=== PATIENT | male | born 1960 | race Caucasian/White ===

== ENCOUNTER → 2024-08-08 | Outpatient (CLI) | payer MEDICARE, MEDICAID, SELFPAY ==
--- NOTE | 2024-08-08 09:24 | XR_ITS ---
Examination: Abdomen AP single view Technique: AP portable supine abdomen, single view Exam date and time: August 08, 2024 0927 hours INDICATIONS: Difficulty urinating beginning one month ago urinary tract infections one month FINDINGS: No calculi, distended urinary bladder is not depicted Osseous structures are intact Nonobstructive bowel gas pattern IMPRESSION: No renal or ureteral calculi
== END | disposition home or self-care (01) ==
LOC: CDIM 09:17
PROVIDERS: PCP Family Medicine; Referring Provider Surgery; Visit Provider Surgery
DX: N39.0 Urinary tract infection, site not specified (principal)
CPT/HCPCS: 74018

== ENCOUNTER 2024-09-20 08:03 | Emergency (ER) | payer MEDICARE, MEDICAID, SELFPAY ==
[2024-09-20 08:07] VITALS: BP 133/67; PULSE 86; RESP 19; TEMP 35.9; O2SAT 94
--- NOTE | 2024-09-20 08:14 | XR_ITS ---
Examination: CT brain head without contrast. 2-D sagittal coronal reconstructions Date and time of exam:September 20, 2024 0900 hours Comparison February 17, 2024 INDICATIONS: New onset seizures today CTDI: vol (mGy):47.5 DLP: (mGycm):879 Technique: Multiple CT axial sections of the brain have been obtained, 5 mm slice thickness. Contrast has not been administered. 2-D sagittal, coronal reconstructions have been obtained Low dose protocols were performed. One or more of the following dose reduction techniques were used; automated exposure control, adjustment of the mA and/or KV according to patient size, use of iterative reconstruction technique. Findings: Mild ventricular enlargement. Intra-axial or extra-axial hemorrhage density is not seen. No mass effect or midline shift Basal cisterns are not remarkable. Fourth ventricle is midline. Cranial vault intact. Impression: Negative for acute hemorrhage, mass effect or midline shift Consider elective brain MRI follow-up, pre and postcontrast, seizure protocol
--- NOTE | 2024-09-20 08:15 | EDRME_ITS ---
Rapid Medical Screening Exam [facility] Arrival date/time: 09/20/24 08:03 64-year-old male with a history of Down syndrome and diabetes presents to the emergency room with a chief complaint of a seizure that lasted 10 to 20 seconds. This was not a tonic-clonic seizure and the patient does not have a history of seizures. This was observed by staff at [facility]. I have greeted and performed a focused initial assessment of this patient. A comprehensive ED assessment and evaluation of the patient, analysis of all test results, and completion of the medical decision making process will be conducted by additional ED providers. Chief Complaint: Seizure Vital signs: Vital Signs Temperature 96.7 F L 09/20/24 08:07 Pulse Rate 86 09/20/24 08:07 Respiratory Rate 19 09/20/24 08:07 Blood Pressure 133/67 H 09/20/24 08:07 Pulse Oximetry (%) 94 L 09/20/24 08:07 Oxygen Delivery Method Room Air 09/20/24 08:07 Vital signs reviewed by provider: Yes
[2024-09-20 08:16] VITALS: PULSE 70; O2SAT 98
[2024-09-20 08:45] VITALS: BMI 31.2
--- NOTE | 2024-09-20 09:03 | XR_ITS ---
Examination: AP chest single view TECHNIQUE: AP portable supine chest single view Exam date and time: September 20, 2024 0943 hours Comparison February 17, 2024 INDICATIONS: Shortness of breath one week. FINDINGS: Normal heart size Subtle bilateral lung opacity consistent with pneumonia Mild vascular congestion Prominent osteopenia IMPRESSION: Findings most consistent with diffuse bilateral pneumonia
--- NOTE | 2024-09-20 09:03 | EKG_ITS ---
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
--- NOTE | 2024-09-20 09:20 | PD.EDSEIZ ---
ED Seizures RME/HPI General Chief Complaint: Seizure Stated Complaint: SEIZURE Arrival date/time: 09/20/24 08:03 RME / HPI RME / HPI Narrative: 09/20/24 08:03 64-year-old male with a history of Down syndrome and diabetes presents to the emergency room with a chief complaint of a seizure that lasted 10 to 20 seconds. This was not a tonic-clonic seizure and the patient does not have a history of seizures. This was observed by staff at [facility]. I have greeted and performed a focused initial assessment of this patient. A comprehensive ED assessment and evaluation of the patient, analysis of all test results, and completion of the medical decision making process will be conducted by additional ED providers. Related Data Allergies Allergy/AdvReac Type Severity Reaction Status Date / Time latex Allergy Redness of Unverified 02/18/24 03:57 Skin Course Orders Category Date Time Status Bedside COVID-19 Antigen Test NOW Care 09/20/24 09:01 Active Bedside Influenza A&B Antigen Test NOW Care 09/20/24 09:01 Active EKG (ED ONLY) *Do not use* NOW Care 09/20/24 09:03 Active Saline [Insert IV] NOW Care 09/20/24 09:01 Active Seizure precautions NOW Care 09/20/24 08:14 Active Straight [In and Out Catheter] X1 Care 09/20/24 09:[address] head/brain wo con Stat Exams 09/20/24 08:14 Taken EKG (ED Only) Stat Exams 09/20/24 09:03 Draft XR chest 1V portable Stat Exams 09/20/24 09:03 Ordered Ammonia Stat Lab 09/20/24 08:15 Ordered CBC Stat Lab 09/20/24 08:15 Ordered CMP [Comprehensive Metabolic Panel] Stat Lab 09/20/24 08:15 Ordered Drug Screen,Urine Stat Lab 09/20/24 08:15 Ordered Magnesium Stat Lab 09/20/24 08:15 Ordered PT [Prothrombin Time with INR] Stat Lab 09/20/24 08:15 Ordered PTT [Partial Thromboplastin Time] Stat Lab 09/20/24 08:15 Ordered Thyroid Stimulating Hormone Stat Lab 09/20/24 08:15 Ordered Troponin I Stat Lab 09/20/24 08:15 Ordered UA, C/S IF [Urinalysis, C/S if Indicated] Stat Lab 09/20/24 08:15 Ordered Ondansetron Inj [Zofran Inj] Med 09/20/24 09:02 Discontinued 4 mg IV X1 ONE Sodium Chloride 0.9% 1000 ml [Ns] 1,000 ml Med 09/20/24 09:02 Active IV 999 mls/hr levETIRAcetam INJ [Keppra Inj] Med 09/20/24 09:02 Discontinued 1,000 mg IVP X1 ONE Vital Signs Vital signs: Vital Signs Temperature 96.7 F L 09/20/24 08:07 Pulse Rate 86 09/20/24 08:07 Respiratory Rate 19 09/20/24 08:07 Blood Pressure 133/67 H 09/20/24 08:07 Pulse Oximetry (%) 94 L 09/20/24 08:07 Oxygen Delivery Method Room Air 09/20/24 08:07 Seizure Evaluation data The following diagnostics were reviewed and interpreted by me:: EKG tracing(s) (My interpretation of the EKG: NSR (66 bpm) with no ST-T changes. Miky Loredo MD) Medications / Prescriptions Medication administrations:: Medication Administration History Sodium Chloride (Ns) 1,000 mls @ 999 mls/hr IV .Q1H1M ONE Stop: 09/20/24 10:02 Discontinued Medications Levetiracetam (Levetiracetam Inj 100 Mg/Ml Vial 5ml) 1,000 mg IVP X1 ONE Stop: 09/20/24 09:03 Ondansetron HCl (Ondansetron Inj 2 Mg/Ml Inj 2 Ml) 4 mg IV X1 ONE; Protocol Stop: 09/20/24 09:03 Discharge Plan Prescriptions/Referrals Referrals: Kimberly Santana PA-C [Primary Care Provider] - In 1 week Patient/Caregiver Discharge Instructions Print Language: Armenian
--- NOTE | 2024-09-20 09:27 | PD.EDSEIZ ---
ED Seizures RME/HPI General Chief Complaint: Seizure Stated Complaint: SEIZURE Arrival date/time: 09/20/24 08:03 RME / HPI RME / HPI Narrative: 09/20/24 08:03 64-year-old male with a history of Down syndrome and diabetes presents to the emergency room with a chief complaint of a seizure that lasted 10 to 20 seconds. This was not a tonic-clonic seizure and the patient does not have a history of seizures. This was observed by staff at [facility]. I have greeted and performed a focused initial assessment of this patient. A comprehensive ED assessment and evaluation of the patient, analysis of all test results, and completion of the medical decision making process will be conducted by additional ED providers. DR. MACIEL MAIN ED EVALUATION: This section includes all my notes and documentations, including HPI, PE, and ED course.? Miky Maciel MD HPI: 64 year old male with past medical history significant for Down Syndrome presents to the Emergency Department [facility] from assisted with complaint of a seizure that lasted 10-20 seconds just prior to arrival. 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 No other complaints reported. ROS: All negative except as documented in HPI. Physical Exam: General:? Alert and oriented X 1.? No acute distress when remaining still.? Eyes:? Conjunctivae and lids clear. PERRL. EOMI. ENT:? No nasal congestion.? ? Neck:? Supple. No carotid bruit. Heart:? RRR. Lungs:? No respiratory distress.? Good air movement.? No rhonchi, wheezing, rales.? Abdomen:? Soft and nontender.? Legs:? No clubbing, cyanosis, edema. Skin:? Warm and dry.? Neuro: Cranial nerves II to XII grossly normal. No peripheral motor deficits. I reviewed all diagnostic test results. My interpretation of the EKG is?NSR (66 bpm) with no ST-T changes. My interpretation of the chest x-ray is infiltrates. My review of the head CT report is?no acute findings. Blood tests unremarkable. At this point, diagnoses include new onset seizure and pneumonia. Treatment here included IV fluids, Levetiracetam 1,000 mg IV, zofran 4 mg. Remained stable. Prescribed Keppra and ABX and recommended more outpatient neurology workup. Based on my best medical judgment, made decision no further evaluation or treatment indicated at this time.? Staff understands and agrees to the discharge instructions customized and printed, see below. Discharge Instructions from Dr. Maciel printed for you: 1. After extensive evaluation, there is no very serious condition that caused the seizure. Such as stroke or brain tumor or heart attack. 2. To prevent another seizure, Keppra as prescribed. Cefdinir and Zithromax as prescribed. 3. See his neurologist on 09/21/2024 for further care. At minimum, call the office and let them know what happened to get further instructions. 4. Seek immediate medical care with another seizure or with any concerns. Miky Maciel MD Related Data Previous Rx's ?Medication ?Instructions ?Recorded azithromycin 500 mg tablet 500 mg PO QDAY 3 days #3 tabs 09/20/24 (Zithromax TRI-KIMBERLY) cefdinir 300 mg capsule 300 mg PO BID #14 caps 09/20/24 levetiracetam 500 mg tablet 500 mg PO BID #60 tabs 09/20/24 (Keppra) Allergies Allergy/AdvReac Type Severity Reaction Status Date / Time latex Allergy Redness of Unverified 02/18/24 03:57 Skin Course Quality Measures none Orders Category Date Time Status Bedside COVID-19 Antigen Test NOW Care 09/20/24 09:01 Completed Bedside Influenza A&B Antigen Test NOW Care 09/20/24 09:01 Completed EKG (ED ONLY) *Do not use* NOW Care 09/20/24 09:03 Completed Saline [Insert IV] NOW Care 09/20/24 09:01 Completed Seizure precautions NOW Care 09/20/24 08:14 Completed Straight [In and Out Catheter] X1 Care 09/20/24 09:[address] head/brain wo con Stat Exams 09/20/24 08:14 Completed EKG (ED Only) Stat Exams 09/20/24 09:03 Draft XR chest 1V portable Stat Exams 09/20/24 09:03 Completed Ammonia Stat Lab 09/20/24 09:52 Completed CBC Stat Lab 09/20/24 09:52 Completed CMP [Comprehensive Metabolic Panel] Stat Lab 09/20/24 09:52 Completed Magnesium Stat Lab 09/20/24 09:52 Completed PT [Prothrombin Time with INR] Stat Lab 09/20/24 09:52 Completed PTT [Partial Thromboplastin Time] Stat Lab 09/20/24 09:52 Completed Thyroid Stimulating Hormone Stat Lab 09/20/24 09:52 Completed Troponin I Stat Lab 09/20/24 09:52 Completed Ondansetron Inj [Zofran Inj] Med 09/20/24 09:02 Discontinued 4 mg IV X1 ONE Sodium Chloride 0.9% 1000 ml [Ns] 1,000 ml Med 09/20/24 09:02 Discontinued IV 999 mls/hr levETIRAcetam INJ [Keppra Inj] Med 09/20/24 09:02 Discontinued 1,000 mg IVP X1 ONE Vital Signs Vital signs: Vital Signs Temperature 96.7 F L 09/20/24 08:07 Pulse Rate 86 09/20/24 08:07 Respiratory Rate 19 09/20/24 08:07 Blood Pressure 133/67 H 09/20/24 08:07 Pulse Oximetry (%) 94 L 09/20/24 08:07 Oxygen Delivery Method Room Air 09/20/24 08:07 Seizure MDM Narrative MDM Narrative:: IColleen am scribing for and in the presence of Dr. Maciel. Patient data External records reviewed:: EMS form Clinical information provided by:: neonatal icu coordinator Social determinants that could affect healthcare access:: housing (assisted) Patient has the following chronic illnesses:: Down Syndrome How is presenting disease/condition affected by chronic disease/condition?: exacerbated by Evaluation data The following diagnostics were reviewed and interpreted by me:: lab results, radiology exam(s) and EKG tracing(s) (My interpretation of the EKG: NSR (66 bpm) with no ST-T changes. Miky Maciel MD) Lab and/or radiology exams considered but not ordered:: none Interpretation Summary: New onset seizure Medications / Prescriptions Medications or Prescriptions considered but not ordered:: none Medication administrations:: Medication Administration History Discontinued Medications Sodium Chloride (Ns) 1,000 mls @ 999 mls/hr IV .Q1H1M ONE Stop: 09/20/24 10:02 Last Admin: 09/20/24 09:51 Dose: 999 mls/hr Documented By: KEANU Levetiracetam (Levetiracetam Inj 100 Mg/Ml Vial 5ml) 1,000 mg IVP X1 ONE Stop: 09/20/24 09:03 Last Admin: 09/20/24 09:50 Dose: 1,000 mg Documented By: KEANU Ondansetron HCl (Ondansetron Inj 2 Mg/Ml Inj 2 Ml) 4 mg IV X1 ONE; Protocol Stop: 09/20/24 09:03 Last Admin: 09/20/24 09:50 Dose: 4 mg Documented By: KEANU IV fluids, Levetiracetam 1,000 mg, zofran 4 mg Consultations Consultation(s) initiated? (list below): No Diagnosis Seizure Differential Diagnosis: generalized seizure, new onset seizure and epileptic seizure Most likely diagnosis given after review of the tests above:: New onset seizure Admission Indicated Admission indicated?: not indicated Admission Request Was there a request for admission?: No Disposition Plan Disposition Plan: Discharge Discharge Attestation Discharge Attestation: The patient and all family members were given an opportunity to ask questions and understood the discharge instructions. Discharge instructions specifically effects, indications for sooner follow up or return to the emergency department, and the expected course of current diagnosis. Patient condition: Stable Discharge Plan Plan Patient Disposition: HOME (Self Care) Prescriptions/Referrals Prescriptions/Med Rec: New levetiracetam [Keppra] 500 mg tablet 500 mg PO BID Qty: 60 0RF cefdinir 300 mg capsule 300 mg PO BID Qty: 14 0RF azithromycin [Zithromax TRI-KIMBERLY] 500 mg tablet 500 mg PO QDAY 3 Days Qty: 3 0RF Referrals: Kimberly Santana PA-C [Primary Care Provider] - In 1 week Problem List Clinical Impression: New onset seizure, Pneumonia Patient/Caregiver Discharge Instructions Discharge Activity: activity as tolerated Education Materials: ED Pneumonia (Adult), ED Seizure New Onset Unknown ... Additional Instructions: Discharge Instructions from Dr. Maciel printed for you: 1. After extensive evaluation, there is no very serious condition that caused the seizure. Such as stroke or brain tumor or heart attack. 2. To prevent another seizure, Keppra as prescribed. Cefdinir and Zithromax as prescribed. 3. See his neurologist on 09/21/2024 for further care. At minimum, call the office and let them know what happened to get further instructions. 4. Seek immediate medical care with another seizure or with any concerns. Print Language: Fijian Stand Alone Forms: [employer] Award Info., Patient Portal Info Letter
[2024-09-20] MEDS: ONDANSETRON INJ 2 MG/ML INJ 2 ML 4 MG IV (09:50)
[2024-09-20] MEDS: levETIRAcetam INJ 100 MG/ML VIAL 5ML 1000 MG IVP (09:50)
[2024-09-20] MEDS: SODIUM CHLORIDE 0.9% 1000 ML 1,000 ML 999 ML IV (09:51)
[2024-09-20 10:01] LABS: Basophils # (Auto) 0.1 Thou/mm3 (0.0-0.2); Basophils % (Auto) 1 % (0-2.5); Eosinophils # (Auto) 0.1 Thou/mm3 (0.0-0.5); Eosinophils % (Auto) 2 % (0-10); Hematocrit 42.1 % (41.0-53.0); Hemoglobin 13.9 g/dL (13.5-16.0); Immature Granulocytes % (Auto) 0 % (0-0); Immature Granulocytes Auto 0.02 Thou/mm3 (0.00-0.00); Lymphocytes # (Auto) 1.3 Thou/mm3 (1.0-4.8); Lymphocytes % (Auto) 17 % (10-50); Mean Corpuscular Hemoglobin 29.3 pg (25.0-35.0); Mean Corpuscular Volume 89 fL (80-100); Monocytes # (Auto) 0.7 Thou/mm3 (0.0-0.8); Monocytes % (Auto) 9 % (0-12); Neutrophils # (Auto) 5.2 Thou/mm3 (1.8-7.7); Neutrophils % (Auto) 71 % (37-80); Nucleated Red Blood Cell % 0 /100 WBC (0); Platelet Count 261 Thou/mm3 (140-440); RDW Standard Deviation 53.3 fL (35.1-43.9); Red Blood Count 4.75 Miln/mm3 (4.50-5.90); White Blood Count 7.4 Thou/mm3 (3.8-10.6)
[2024-09-20 10:18] LABS: Ammonia 18 uMol/L (11-32)
[2024-09-20 10:26] LABS: INR 1.1 (0.9-1.3); Partial Thromboplastin Time 31.6 Seconds (22.0-36.0); Prothrombin Time 11.9 Seconds (9.0-12.2)
[2024-09-20 10:35] LABS: Alanine Aminotransferase 12 U/L (10-49); Albumin, Serum 3.9 gm/dL (3.4-4.8); Albumin/Globulin Ratio 1.2 (1.2-2.2); Alkaline Phosphatase 112 U/L (46-116); Anion Gap 8 (7-16); Aspartate Amino Transferase 27 U/L (0-34); BUN/Creatinine Ratio 21 Ratio (12-20); Bilirubin,Total 0.3 mg/dL (0.3-1.2); Blood Urea Nitrogen 19 mg/dL (9-23); Calcium 9.7 mg/dL (8.3-10.6); Calcium (Corrected) 9.8 mg/dL (8.5-10.1); Carbon Dioxide 26.4 mMol/L (20.0-31.0); Chloride 107 mMol/L (98-107); Creatinine (Component) 0.9 mg/dL (0.6-1.3); Estimated Creatinine Clearance 69.2 mL/min (>60); Globulin 3.3 gm/dL (2.3-3.5); Glucose 100 mg/dL (74-106); Magnesium 2.1 mg/dL (1.6-2.6); Osmolality,Calculated 283 (275-295); Potassium 4.6 mMol/L (3.4-5.1); Sodium 141 mMol/L (136-145); Thyroid Stimulating Hormone 1.91 uIU/mL (0.55-4.78); Total Protein 7.2 gm/dL (5.7-8.2); Troponin I < 0.020 ng/mL (0.0-0.045); eGFR > 60 See Note
[2024-09-20 11:43] VITALS: BP 132/86; PULSE 72; RESP 16; TEMP 36.7; O2SAT 94
== END 2024-09-20 11:45 | disposition home or self-care (01) ==
PROVIDERS: Nurse Practitioner Family; Emergency Provider Emergency Medicine; PCP Physician Assistant
DX: R56.9 Unspecified convulsions (principal); J18.9 Pneumonia, unspecified organism; Q90.9 Down syndrome, unspecified; E11.9 Type 2 diabetes mellitus without complications
CPT/HCPCS: 36415; 70450; 71045; 80053; 80307; 81001; 82140; 83735; 84443; 84484; 85025; 85610; 85730; 93005; 96374; 96375; 99284; J1953; J2405; J7030

== ENCOUNTER 2025-05-20 08:20 | Inpatient (IN) | payer MEDICARE, MEDICAID, SELFPAY ==
[2025-05-20] VITALS (8 sets, daily range): BP systolic 98–157; BP diastolic 66–92; PULSE 72–99; RESP 12–97; TEMP 36.2–36.7; O2SAT 91–98; BMI 29.4; BMI 29.9
--- NOTE | 2025-05-20 08:40 | EKG_ITS ---
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
--- NOTE | 2025-05-20 08:54 | XR_ITS ---
EXAMINATION: AP chest single view TECHNIQUE: AP portable upright chest single view Date and time: May 20, 2025, 1007 hours, comparison September 20, 2024 INDICATIONS: Shortness of breath today FINDINGS: Mild enlargement cardiac contour. Prominent vascular congestion. Early edema versus pneumonia at the lung bases. Prominent osteopenia IMPRESSION: Suspicious for mild heart failure Mild opacity at the lung bases, consider early bibasilar pneumonia
--- NOTE | 2025-05-20 08:56 | EDNOTE_ITS ---
<Statement entered by Alea Hrenandez MD - 05/20/25 16:26> I, Alea Hernandez MD, have reviewed the history, exam, and assessment of the patient. I have evaluated the patient independently and agree with the plan of care documented by [ ]. All diagnostic studies were reviewed and discussed. I confirm the diagnosis as documented by the Resident. I was present during the Medical Decision Making for this patient. The patient's plan of care was created between myself and the Resident and consistent with our discussion of the patient's case. ED GI Bleed RME/HPI General Chief complaint: GI Bleed Stated complaint: rectal bleed Time Seen by Provider: 05/20/25 08:24 Arrival date/time: 05/20/25 08:20 RME / HPI RME / HPI Narrative: Patient is a 64 year old male with past medical history of down syndrome- nonverbal, history of seizures, and hypothyroidism who is presenting to the emergency room with chief complain of hematochezia, single episode that was significant per career development manager, Kary Ellsworth. Patient's caregiver stated single episode occured earlier this morning and initially noted by nursing staff. Patient has bowel movements every other day with last bowel movement being on 05/19/2025 in the morning. No previous history of hematochezia. Denied history of diverticulitis. Denied Melena in stool. No diarrhea. No Fever or chills. Nasal congestion with yellow phlegm. Single episode of emesis, denied hematemsis. Bowel regimen at facility: Docusate. NO colonoscopy. Meloxicam use. Recent Antibiotic use with Azithromycin now day 3 of antibiotics for concern of community acquired pneumonia prescribed by PCP, at [facility] [place]. Previous EGD noted for esophagitis. Home medication remains unchagned with Levothyroxine 150 mcg and Keppra 500 mg PO BID. 1:42: CT Abdomen/Pelvis noted to have colitis Related Data Previous Rx's ?Medication ?Instructions ?Recorded cefdinir 300 mg capsule 300 mg PO BID #14 caps 09/20 levetiracetam 500 mg tablet 500 mg PO BID #60 tabs 12/10 (Keppra) Allergies Allergy/AdvReac Type Severity Reaction Status Date / Time latex Allergy Redness of Verified 05/20/25 08:31 Skin Review of Systems Review of Systems Narrative Review of Systems: NON Verbal history per caregiver General appearance: NO weight change, NO fatigue, NO weakness, NO fever, NO chills, NO night sweats, No cough Skin: NO rash, NO itching, NO sores, NO moles HEENT: NO Trauma, NO nausea, NO vomiting, NO visual changes, NO blurry vision, NO double vision, NO tinnitus, NO vertigo, NO ear discharge, NO rhinorrhea, NO stuffiness, NO sneezing, NO allergy, NO epistaxis. NO Hoarseness, NO sore throat, NO swollen neck. Cardiac: NO Palpitations, NO dyspnea on exertion, NO orthopnea, NO paroxysmal nocturnal dyspnea, NO edema Respiratory: NO Shortness of Breath, NO Wheezing, NO Cough, NO Sputum, NO hemoptysis GI:NO appetite, NO nausea, YES vomiting, NO dysphagia, NO changes in bowel frequency, YES stool color, NO diarrhea, NO constipation, NO hemetemesis, NO hemorrhoids, NO melena, YES hematechezia, NO abdominal pain, NO jaundice Renal: NO frequency, NO hesitancy, NO urgency, NO hematuria, NO nocturia, NO incontinence MSK: NO muscle weakness, NO gout, NO arthritis, NO muscle stiffness Neuro: NO headaches, NO tremors, NO weakness, NO paralysis, NO seizures, NO loss of consciousness, NO numbness. Hem: NO anemia, NO easy bruising/bleeding, NO petechiae, NO purpura Endo: NO heat/cold intolerance, NO excessive sweating, NO polyuria, NO polydipsia, NO polyphagia, NO thyroid problems, NO diabetes Pysch: NO mood, NO anxiety, NO depression ED Exam Narrative Physical exam: General Appearance: Alert & Oriented X3, well-nourished male who is lying in bed in no acute distress, but does hold his lower abdomen and is resistant to moving hands away from area. HEENT: Skull symmetrical and atraumatic. Conjunctivae pin and moist. Pupils equal, round, reactive to light and accommodation (PERRL). External ear without lesion or discharge. Straight, nares patient, mucosa pink, no discharge. No thyroid nodule appreciated. No cervical lymphadenopathy. Cardio: Normal Rate and Rhythm with S1 and S2 heart sounds. No murmurs or extra heart sounds auscultated. No bruits on carotid auscultation. No peripheral edema or cyanosis. Lungs: Symmetric with good expansion. Chest and back non-tender. Breath sounds vesicular without crackles, wheezing or rhonchi Abdomen: Non-tender, Non-distended, Normal Reactive Bowel Sounds, diapers appear with moderate bright red blood Neuro: Alert, cooperative, oriented to person, place, and time. Speech clear. CN grossly intact. Upper motor strength 5/5 and Lower motor strength 5/5. Sensation intact. Course Quality Measures none (NONE Bleeding ) Orders Category Date Time Status Aspiration precautions ONCE Care 05/20/25 10:07 Active Bedside COVID-19 Antigen Test NOW Care 05/20/25 09:42 Active Bladder Scan NEEDED Care 05/20/25 11:34 Active Lehr Loader NOW Care 05/20/25 08:51 Active Continuous Pulse Oximetry Care 05/20/25 08:51 Completed Continuous Pulse Oximetry NOW Care 05/20/25 08:46 Completed EKG (ED ONLY) *Do not use* NOW Care 05/20/25 08:40 Completed Head of Bed Elevation NOW Care 05/20/25 10:07 Active In and Out Catheter X1 Care 05/20/25 09:32 Completed Insert IV STAT Care 05/20/25 08:47 Active Intake and Output Routine Care 05/20/25 08:47 Ordered NPO NOW Care 05/20/25 08:46 Active Occult Blood,Stool (Nursing) NOW Care 05/20/25 08:44 Active Strict Intake and Output Routine Care 05/20/25 10:07 Ordered Vital Signs, Non-Routine [id number] Care 05/20/25 09:[address] abdomen pelvis wo con Routine Exams 05/20/25 10:59 Taken EKG (ED Only) Stat Exams 05/20/25 08:40 Draft XR chest 1V Routine Exams 05/20/25 08:54 Completed Amylase Stat Lab 05/20/25 09:11 Completed Blood Culture (Lab) Stat Lab 05/20/25 10:07 Received C-Reactive Protein Stat Lab 05/20/25 09:11 Completed CBC Routine Lab 05/20/25 09:11 Completed CMP [Comprehensive Metabolic Panel] Routine Lab 05/20/25 09:11 Completed Cocci Serology IgM with reflex to IgG [Cocci Serology, Lab 05/20/25 09:11 Received Unk History] Routine Comprehensive Metabolic Panel Stat Lab 05/20/25 09:11 Completed Creatinine,Random Urine Stat Lab 05/20/25 09:32 Completed Drug Screen,Urine Routine Lab 05/20/25 09:32 Completed Electrolytes, Urine Random Stat Lab 05/20/25 09:32 Completed FLU A&B [Influenza A & B Rapid Panel] Stat Lab 05/20/25 10:10 Completed Lactic Acid [Lactate (Lactic Acid)] Stat Lab 05/20/25 10:07 Completed Lipase Stat Lab 05/20/25 09:11 Completed Magnesium Stat Lab 05/20/25 09:11 Completed Occult Blood, Stool (LAB) Stat Lab 05/20/25 08:46 Completed Partial Thromboplastin Time Stat Lab 05/20/25 09:11 Completed Phosphorous Stat Lab 05/20/25 09:11 Completed Procalcitonin Stat Lab 05/20/25 09:11 Completed Prothrombin Time with INR Stat Lab 05/20/25 09:11 Completed TSH [Thyroid Stimulating Hormone] Routine Lab 05/20/25 09:11 Completed Troponin I Stat Lab 05/20/25 09:11 Completed Type and Screen Routine Lab 05/20/25 09:11 Completed Urinalysis, C/S if Indicated Stat Lab 05/20/25 09:20 Completed Urinalysis, C/S if Indicated Stat Lab 05/20/25 09:32 Completed Urine Culture Routine Lab 05/20/25 09:20 Received Urine Culture Stat Lab 05/20/25 09:32 Received Ampicillin/Sulbac Inj [Unasyn Inj] 1.5 gm Med 05/20/25 09:45 Discontinued SODIUM CHLORIDE 0.9% (Popper) [Ns 0.9% (P)] 50 ml IV X1 Ampicillin/Sulbac Inj [Unasyn Inj] 3 gm Med 05/20/25 10:15 Discontinued SODIUM CHLORIDE 0.9% (Popper) [Ns 0.9% (P)] 50 ml IV Q6HR Ampicillin/Sulbac Inj [Unasyn Inj] 3 gm Med 05/20/25 10:19 Discontinued SODIUM CHLORIDE 0.9% (Popper) [Ns 0.9% (P)] 50 ml IV X1 Ondansetron Inj [Zofran Inj] Med 05/20/25 08:46 Active 4 mg IVP Q1H PRN Pantoprazole Inj [Protonix Inj] Med 05/20/25 08:46 Discontinued 80 mg IVP X1 ONE Pharmacy to Consult Patient Med 05/20/25 10:01 Discontinued 1 each XX PRN PRN Ringers Lactated 1000 ml [Lactated Ringers] 1,000 ml Med 05/20/25 09:14 Discontinued IV 999 mls/hr as above Vital Signs Vital signs: Vital Signs Temperature 97.6 F 05/20/25 08:31 Pulse Rate 77 05/20/25 08:31 Respiratory Rate 17 05/20/25 08:31 Blood Pressure 131/71 H 05/20/25 08:31 Pulse Oximetry (%) 95 05/20/25 08:31 Oxygen Delivery Method Room Air 05/20/25 08:31 GI Bleed Patient data External records reviewed:: [facility] previous records and Retirement records Clinical information provided by:: patient and access director (Kary Ellsworth ) Social determinants that could affect healthcare access:: mental health (down syndrome non verbal ) Patient has the following chronic illnesses:: Down Syndrome, history of Seizure, and Hypothyroidism How is presenting disease/condition affected by chronic disease/condition?: uneffected by Evaluation data The following diagnostics were reviewed and interpreted by me:: EKG tracing(s) Lab and/or radiology exams considered but not ordered:: CBC, CMP, Chest x-ray, type and screen, UA/Culture CT Abdomen/Pelvis Interpretation Summary: Leukocytosis, WBC, 18.5-->Procalcitonin, ESR, Blood Culture Stat Medications / Prescriptions Medications or Prescriptions considered but not ordered:: Pantoprzole 80 mg X 1 Bolus LR X 1 Unaysn X 1 Medication administrations:: Medication Administration History Acetaminophen (Acetaminophen 325 Mg Tablet) 650 mg PO Q6H PRN PRN Reason: Fever >100.3 Stop: 06/19/25 13:25 Acetaminophen (Acetaminophen 325 Mg Tablet) 650 mg PO Q6H PRN PRN Reason: PAIN SCALE 1-3 (mild Stop: 06/19/25 13:25 Allopurinol (Allopurinol 100 Mg Tablet) 300 mg PO QDAY BORIS Stop: 06/20/25 08:59 Docusate Sodium (Docusate Sod 100 Mg Capsule) 100 mg PO QDAY BORIS; Protocol Stop: 06/20/25 08:59 Ceftriaxone Sodium/Dextrose (Rocephin/D5w 1gm Iv Premix) 1 gm in 50 mls @ 100 mls/hr IV QDAY [facility] Stop: 05/27/25 13:31 Azithromycin 500 mg/ Sodium (Chloride) 250 mls @ 250 mls/hr IV QDAY [facility] Stop: 05/27/25 13:31 Levetiracetam (Levetiracetam Inj 100 Mg/Ml Vial 5ml) 500 mg IVP Q12HR [facility] Stop: 06/19/25 20:59 Levothyroxine Sodium (Levothyroxine Sodium 125 Mcg Tablet) 150 mcg PO ACBR [facility] Stop: 06/20/25 05:59 Loratadine (Loratadine 10 Mg Tablet) 10 mg PO QDAY [facility] Stop: 06/20/25 08:59 Meloxicam (Meloxicam 7.5 Mg Tablet) 7.5 mg PO HS [facility] Stop: 06/19/25 20:59 Mirtazapine (Mirtazapine 15 Mg Tablet) 7.5 mg PO HS [facility] Stop: 06/19/25 20:59 Ondansetron HCl (Ondansetron Inj 2 Mg/Ml Inj 2 Ml) 4 mg IVP Q1H PRN PRN Reason: PERSISTENT NAUSEA OR VOMITING Discontinued Medications Lactated Ringer's (Lactated Ringers) 1,000 mls @ 999 mls/hr IV .Q1H1M ONE Stop: 05/20/25 10:14 Last Infusion: 05/20/25 10:34 Dose: Infused Documented By: Admin: 05/20/25 09:21 Dose: 999 mls/hr Documented By: Ampicillin Sodium/Sulbactam (Sodium 3 gm/ Sodium Chloride) 50 mls @ 100 mls/hr IV Q6HR [facility] Stop: 05/27/25 10:14 Last Admin: 05/20/25 10:34 Dose: Not Given Documented By: Non-Admin Reason: Discontinued Ampicillin Sodium/Sulbactam (Sodium 1.5 gm/ Sodium Chloride) 50 mls @ 100 mls/hr IV X1 ONE Stop: 05/20/25 10:14 Last Admin: 05/20/25 10:19 Dose: Not Given Documented By: Non-Admin Reason: Discontinued Ampicillin Sodium/Sulbactam (Sodium 3 gm/ Sodium Chloride) 50 mls @ 100 mls/hr IV X1 ONE Stop: 05/20/25 10:48 Last Infusion: 05/20/25 11:17 Dose: Infused Documented By: Admin: 05/20/25 10:46 Dose: 100 mls/hr Documented By: LESLYE Pantoprazole Sodium (Pantoprazole Inj 40 Mg Vial) 80 mg IVP X1 ONE Stop: 05/20/25 08:47 Last Admin: 05/20/25 09:17 Dose: 80 mg Documented By: Pharmacy Consult (Pharmacy To Consult Patient) 1 each XX PRN PRN PRN Reason: CONSULT Stop: 06/19/25 10:00 see above Consultations Consultation(s) initiated? (list below): Yes Consultation #1 (Physician, Specialty, Details): Dr. Gonzalez 12:00 PM, Resident Diagnosis GI bleed differential diagnosis: hemorrhoids, gastritis, Lower gastrointestinal hemorrhage and hematochezia Most likely diagnosis given after review of the tests above:: Likely diagnosis of hemorrhoids as patient requires docusate, goes every other day and typically strains Admission Indicated Admission indicated?: indicated Admission Request Was there a request for admission?: Yes Admission Attestation Admission request attestation: Discussed case with Dr. Gonzalez, resident, from Hospitalist service regarding admission. Discussed patients ED course, exam findings, labs, and radiology results. The Hospitalist agrees to accept the patient for admission. Disposition Plan Disposition Plan: Admit Discharge Plan Plan Patient Disposition: Admit Acute Care w/in Hospital Problem List Clinical Impression: Aspiration pneumonia, Hematemesis MD Attestation MD Attestation I Petr Gonzalez MD reviewed the note and agree with the resident's assessment & plan with modifications/additions/exceptions as below. I have personally reviewed labs, imaging, home meds/prior records, examined the patient, formulated and discussed management plan with the IM team. A 64-year-old male with history of Down syndrome, seizure disorder, hypothyroidism presented to ED with bright red blood on his diaper that was noticed earlier this morning. He was recently diagnosed with community acquired pneumonia and is being treated with azithromycin. Patient is hemodynamically stable, hemoglobin within normal range however has mild leukocytosis, CT abdomen/pelvis with mild rectal thickening, CRP and procalcitonin significantly increased LFTs are elevated. Also noted to have SOURAV. Started on Protonix 40 mg daily, will start on IVF resuscitation, repeat CBC in 8 hours, consulted GI for colonoscopic evaluation. Will start on Rocephin for treatment of community- acquired pneumonia already received 3 days of azithromycin, continue Keppra and levothyroxine home dose. Obtain hepatitis panel. And continue trending LFTs. Use IPC's for DVT prophylaxis
[2025-05-20 09:05] LABS: OBS Developer Expiration Date 2027-02-28; OBS Developer Lot # 4-24-551749; OBS Performed By MADRG3; OBS QC OK? Yes; Occult Blood, Stool Positive (Negative)
[2025-05-20] MEDS: RINGERS LACTATED 1000 ML 1,000 ML 999 ML IV (09:21)
[2025-05-20 09:26] LABS: Basophils # (Auto) 0.1 Thou/mm3 (0.0-0.2); Basophils % (Auto) 0 % (0-2.5); Eosinophils # (Auto) 0.0 Thou/mm3 (0.0-0.5); Eosinophils % (Auto) 0 % (0-10); Hematocrit 43.6 % (41.0-53.0); Hemoglobin 14.3 g/dL (13.5-16.0); Immature Granulocytes Auto 0.14 Thou/mm3 (0.00-0.00); Lymphocytes # (Auto) 1.0 Thou/mm3 (1.0-4.8); Lymphocytes % (Auto) 5 % (10-50); Mean Corpuscular HGB Conc 32.8 g/dl (31.0-37.0); Mean Corpuscular Hemoglobin 29.8 pg (25.0-35.0); Mean Corpuscular Volume 91 fL (80-100); Monocytes # (Auto) 0.8 Thou/mm3 (0.0-0.8); Monocytes % (Auto) 4 % (0-12); Neutrophils # (Auto) 16.5 Thou/mm3 (1.8-7.7); Neutrophils % (Auto) 89 % (37-80); Nucleated Red Blood Cell # 0.00 Thou/mm3 (0.00-0.00); Nucleated Red Blood Cell % 0 /100 WBC (0); Platelet Count 159 Thou/mm3 (140-440); RDW Standard Deviation 55.8 fL (35.1-43.9); Red Blood Count 4.80 Miln/mm3 (4.50-5.90); White Blood Count 18.5 Thou/mm3 (3.8-10.6)
[2025-05-20 09:26] LABS: Collection Type, Urine Clean Catch; RBC,Urine 0 /hpf (0-3); Squamous Epithelial Cell,Urine 0 /hpf (0-5)
[2025-05-20 09:31] LABS: Bilirubin,Urine Negative (Negative); Blood,Urine Negative (Negative); Clarity,Urine Clear (Clear/Hazy); Color,Urine Lt-Yellow (Lt Yel-Yel); Culture Indicated,Urine Not Indicated; Glucose, Urine Negative (Negative); Ketones,Urine Trace (Negative); Leukocyte Esterase,Urine Negative (Negative); Nitrite,Urine Negative (Negative); PH,Urine 6.0 (5.0-7.0); Protein,Urine Negative (Neg - Trace); Specific Gravity,Urine 1.014 (1.001-1.035); Urobilinogen,Urine Negative mg/dL (0.0-1.0); WBC,Urine < 1 /hpf (0-5)
[2025-05-20 09:42] LABS: INR 1.2 (0.9-1.3); Partial Thromboplastin Time 30.1 Seconds (22.0-36.0); Prothrombin Time 12.9 Seconds (9.0-12.2)
[2025-05-20 09:50] LABS: Alanine Aminotransferase 87 U/L (10-49); Albumin, Serum 3.7 gm/dL (3.4-4.8); Albumin/Globulin Ratio 1.2 (1.2-2.2); Alkaline Phosphatase 118 U/L (46-116); Anion Gap 9 (7-16); Aspartate Amino Transferase 87 U/L (0-34); BUN/Creatinine Ratio 17 Ratio (12-20); Bilirubin,Total 0.4 mg/dL (0.3-1.2); Blood Urea Nitrogen 27 mg/dL (9-23); Calcium 8.8 mg/dL (8.3-10.6); Calcium (Corrected) 9.0 mg/dL (8.5-10.1); Carbon Dioxide 25.0 mMol/L (20.0-31.0); Chloride 107 mMol/L (98-107); Creatinine (Component) 1.6 mg/dL (0.6-1.3); Estimated Creatinine Clearance 37.8 mL/min (>60); Globulin 3.0 gm/dL (2.3-3.5); Glucose 129 mg/dL (74-106); Osmolality,Calculated 288 (275-295); Potassium 4.7 mMol/L (3.4-5.1); Sodium 141 mMol/L (136-145); Thyroid Stimulating Hormone 2.06 uIU/mL (0.55-4.78); Total Protein 6.7 gm/dL (5.7-8.2); eGFR 48 See Note
[2025-05-20 09:56] LABS: Collection Type, Urine Catheter
[2025-05-20 10:15] LABS: Lactate (Lactic Acid) 1.9 mMol/L (0.4-2.0)
[2025-05-20 10:39] LABS: Bilirubin,Urine Negative (Negative); Blood,Urine 3+ (Negative); Clarity,Urine Clear (Clear/Hazy); Color,Urine Yellow (Lt Yel-Yel); Culture Indicated,Urine Not Indicated; Glucose, Urine Negative (Negative); Ketones,Urine Negative (Negative); Leukocyte Esterase,Urine Negative (Negative); Nitrite,Urine Negative (Negative); PH,Urine 5.5 (5.0-7.0); Protein,Urine Trace (Neg - Trace); RBC,Urine 7 /hpf (0-3); Specific Gravity,Urine 1.023 (1.001-1.035); Squamous Epithelial Cell,Urine < 1 /hpf (0-5); Urobilinogen,Urine Negative mg/dL (0.0-1.0); WBC,Urine 2 /hpf (0-5)
[2025-05-20] MEDS: AMPICILLIN/SULBAC INJ 3 GM in SODIUM CHLORIDE 0.9% (Popper) 50 ML IV (10:46)
[2025-05-20 10:47] LABS: Alanine Aminotransferase 73 U/L (10-49); Albumin, Serum 3.2 gm/dL (3.4-4.8); Albumin/Globulin Ratio 1.2 (1.2-2.2); Alkaline Phosphatase 102 U/L (46-116); Amylase 37 U/L (30-118); Anion Gap 8 (7-16); Aspartate Amino Transferase 58 U/L (0-34); BUN/Creatinine Ratio 17 Ratio (12-20); Bilirubin,Total 0.4 mg/dL (0.3-1.2); Blood Urea Nitrogen 27 mg/dL (9-23); C-Reactive Protein 11.5 mg/dL (0.0-0.9); Calcium 8.4 mg/dL (8.3-10.6); Calcium (Corrected) 9.0 mg/dL (8.5-10.1); Carbon Dioxide 25.2 mMol/L (20.0-31.0); Chloride 109 mMol/L (98-107); Creatinine (Component) 1.6 mg/dL (0.6-1.3); Estimated Creatinine Clearance 37.8 mL/min (>60); Globulin 2.6 gm/dL (2.3-3.5); Glucose 119 mg/dL (74-106); Lipase 17 U/L (12-53); Magnesium 2.0 mg/dL (1.6-2.6); Osmolality,Calculated 289 (275-295); Phosphorous 3.0 mg/dL (2.4-5.1); Potassium 4.1 mMol/L (3.4-5.1); Procalcitonin 20.71 ng/ml (0.0-0.49); Sodium 142 mMol/L (136-145); Total Protein 5.8 gm/dL (5.7-8.2); Troponin I < 0.020 ng/mL (0.0-0.045); eGFR 48 See Note
[2025-05-20 10:52] LABS: Amphetamine/Methamp Scrn,U Negative (Negative); Barbiturate Screen,Urine Negative (Negative); Benzodiazepines Screen,Urine Negative (Negative); Benzoylecgonine Screen, Ur Negative (Negative); Chloride,Urine Random 33.0 mMol/L (55.0-125.0); Creatinine,Random Urine 159 mg/dL (30-125); Fentanyl Screen,Urine Negative (Negative); Opiate Screen,Urine Negative (Negative); Potassium,Urine Random 43 mMol/L (12-62); Sodium,Urine Random 47.5 mMol/L (20.0-110.0); THC Screen,Urine Negative (Negative)
--- NOTE | 2025-05-20 10:59 | XR_ITS ---
Examination: CT abdomen and pelvis without contrast. Coronal 3-D reconstructions. Sagittal 2-D reconstructions. Date and time of exam: May 20, 2025, 1118 hours INDICATIONS: Rectal bleeding beginning several days ago CTDI: vol (mGy): 16.2 DLP: (mGycm): 886 Technique: Axial images of the abdomen have been obtained, 3 mm slice thickness Intravenous contrast material has not been administered. Low dose protocols were performed. One or more of the following dose reduction techniques were used; automated exposure control, adjustment of the mA and/or KV according to patient size, use of iterative reconstruction technique. Findings: Small pericardial effusion No focal liver or splenic lesion No gallstones No pancreatic or adrenal mass No renal or ureteral calculi, no hydronephrosis No pericecal inflammatory change Intact urinary bladder Bowel present in a right inguinal hernia defect and bladder present in the left inguinal hernia defect no bowel obstruction or incarcerated bowel I do not visualize a definite colitis pattern on this noncontrast study IMPRESSION: Bowel present in the right inguinal hernia but no incarcerated bowel or bowel obstruction Bladder present in a left inguinal hernia
[2025-05-20 11:02] LABS: Influenza A Ag Negative; Influenza B Ag Negative
--- NOTE | 2025-05-20 12:21 | PC.NURSE ---
DR. NOGUERA MADE AWARE OF PT LAB VALUES REGARDING PT'S PROCALCITONIN & WBC LEVELS. PER DR. NOGUERA, NO SEPSIS ALERT AT THIS TIME.
--- NOTE | 2025-05-20 13:12 | PRELIM_ITS ---
CT scan of the abdomen and pelvis without intravenous contrast (axial sections with sagittal and coronal reformats) May 20, 2025 1118 hours Clinical History: Lower GI bleed Comparison: No prior study is available for comparison. Findings: There is heterogeneous attenuation of the lungs, which may represent small airways disease versus interstitial pulmonary edema. There are small bilateral pleural effusions. The liver, gallbladder, pancreas, spleen, kidneys and adrenals are unremarkable on this noncontrast study. A small hiatal hernia is present. There is mild thickening of the transverse colon and proximal descending colon with associated fat stranding. No contrast extravasation in the stomach, small or large bowel loops to suggest active gastrointestinal hemorrhage at the time of examination. No evidence of bowel obstruction. The appendix is within normal limits (coronal images [id number]). There is no mesenteric or retroperitoneal adenopathy. The aorta and its branches demonstrate atheromatous calcification. A small fat and bowel containing right inguinal hernia is noted. A small fat and urinary bladder containing left inguinal hernia is present. The urinary bladder is otherwise unremarkable. There is no free fluid or free air. Degenerative changes are identified in the spine. Impression: Findings consistent with colitis as described. Small bilateral pleural effusions. Report Electronically Signed By: Vinny Allen 05/20/2025 1:11:57 PM [EST]
--- NOTE | 2025-05-20 13:33 | ESHP_ITS ---
<Statement entered by Petr Gonzalez MD - 06/19/25 21:28> I Petr Gonzalez MD reviewed the note and agree with the resident's assessment & plan with modifications/additions/exceptions as below. I have personally reviewed labs, imaging, home meds/prior records, examined the patient, formulated and discussed management plan with the IM team. <Statement entered by Kathie Gonzalez MD - 05/20/25 15:57> Mr. Omer is a 64 y/o male with PMH Down syndrome, seizure disorder on Keppra, hypothyroidism is brought the ED by daycare provider from a [facility] after having several episodes of hematochezia. Per caregiver, the nurse at the facility noticed bright red blood in his briefs. Upon arriving to the ED patient continued to have bright red blood in his briefs witnessed by ED resident and nurse. Patient has been living at current facility for 4 years and per caregiver denied any previous history of hematochezia or melena and no recent colonoscopy. Per caregiver patient was able to talk and participate in daily activities and feed himself however over the last several months he has gradually declined and is now requiring assistance with feeding. Per caregiver patient and other residents at the facility had increased greenish phlegm and patient's primary care started him on azithromycin which he has taken 3 days of. However denied any cough, fever or chills. Patient is currently not conserved however Dr. Khan is his decision-maker as patient does not have any family members. GI is consulted will keep patient n.p.o. and plan for colonoscopy. Patient already received azithromycin 500 mg for 3 days therefore we will start the patient on IV ceftriaxone for community-acquired pneumonia evenident on CXR. Will continue home dose of Keppra for seizures and levothyroxine for hypothyroidism. Patient was seen and examined by me personally. I have directly supervised and reviewed documentation by the team resident and agree with its findings. ------- Plan of care was discussed with the attending, Dr. Carlos Gonzalez, PGY-2 Documentation for date of: 05/20/25 HPI History of Present Illness History of present illness: Mr. Omer is a 64 y/o male with PMH Down syndrome, nonverbal, seizures, hypothyroidism who presented to the ED on 05/20 with 2 episodes of hematochezia. Patient lives in a [facility] ([facility]), and his daycare provider, Kary Ellsworth (who provides history at bedside), noticed that the patient had a large volume of bright red blood without stool in his brief. Patient occasionally has BRBPR in small volume 2/2 hemorrhoids, though has never had an episode of such large volume before. No previous colonoscopy. Previous EGD significant for esophagitis. Patient also had one episode of nonbloody nonbilious emesis. Last BM 05/19 w/o melena or hematochezia. Denies hx diverticulosis/diverticulitis, melena, fevers, chills. Patient was recently prescribed azithromycin for community acquired PNA by PCP at [facility], which he completed 3 days. Other residents in [facility]cc have similar respiratory symptoms but no sx such as hematochezia, melena, emesis, or diarrhea. Per daycare provider, patient is at baseline mentation. He is adentulous but is able to eat a minced-pureed diet. He usually eats his pills with applesauce. ED course: Afebrile, VSS. Labs significant for WBC 18.5, BUN 27,Cr 1.6, AST 87, ALT 87, alk phos 118. CRP 11.5, procal 20.71, FOBT positive. Lactic acid, trop, UDS, flu unremarkable. UA 3+ blood, 7 RBC, Ur creatinine 159. Pending blood cx, urine cx, cocci. CXR shows enlarged cardiac silhouette, vascular congestion, mild opacities b/l lung bases. EKG NSR HR 71, QTc 385. Pending CT a/p w/o read. Given pantoprazole 80 mg IV, 1L LR, Unasyn 3g IV. PMHx: Down syndrome, nonverbal, seizures, hypothyroidism, gout Allergies: Latex, seroquel Home meds: Allopurinol 300 mg daily Docusate 100 mg BID Levothyroxine 150 mcg PO daily Loratadine 10 mg PO daily Meloxicam 15 mg PO daily Mirtazapine 7.5 mg PO QHS VItamin D3 1000IU 3x per week SgHx: none SHx: Lives in [facility] ([facility]) FHx: none reported Review of Systems Review of Systems Narrative Review of Systems: 14 point ROS negative other than HPI per daycare provider Exam Vital Signs Temp Pulse Resp BP Pulse Ox O2 Del Method 98.0 F 72 12 157/84 H 92 L Room Air 05/20/25 12:00 05/20/25 12:00 05/20/25 12:00 05/20/25 12:00 05/20/25 12:00 05/20/25 12:00 Narrative Exam General: No acute distress, well nourished Eye: PERRL, EOMI, normal conjunctiva, no scleral icterus HENT: Normocephalic, atraumatic, normal hearing, moist oral mucosa, adentulous Neck: Supple, non-tender, no JVD, no lymphadenopathy Lungs: Non-labored respirations, symmetric chest rise, no use of accessory muscles. Breath sounds vesicular without crackles, wheezing or rhonchi Heart: Normal S1 and S2, no S3 or S4 appreciated. Normal rate and regular rhythm, no murmurs, rubs gallops, or edema. Peripheral pulses intact bilaterally, capillary refill brisk distally Abdomen: Soft, non-distended, normal bowel sounds. Grimacing to abdominal palpation diffusely Musculoskeletal: Normal range of motion and strength, no tenderness or swelling Skin: Skin is warm, dry, no rashes or lesions. Neurologic: Nonverbal Results: Labs 05/20/25 09:11 05/20/25 09:11 Labs: Short CBC 05/20/25 Range/Units 09:11 WBC 18.5 H (3.8-10.6) Thou/mm3 Hgb 14.3 (13.5-16.0) g/dL Hct 43.6 (41.0-53.0) % Plt Count 159 (140-440) Thou/mm3 BMP 05/20/25 05/20/25 05/20/25 09:11 09:11 09:11 Sodium 142 141 Potassium 4.1 4.7 D Chloride 109 H Carbon Dioxide BUN Creatinine Glucose Calcium 05/20/25 05/20/25 05/20/25 09:11 09:11 09:11 Sodium Potassium Chloride 107 Carbon Dioxide 25.2 25.0 BUN 27 H 27 H Creatinine 1.6 H Glucose Calcium 05/20/25 05/20/25 05/20/25 09:11 09:11 09:11 Sodium Potassium Chloride Carbon Dioxide BUN Creatinine 1.6 H Glucose 119 H 129 H Calcium 8.4 8.8 Cardiac Enzymes 05/20/25 Range/Units 09:11 Troponin I < 0.020 (0.0-0.045) ng/mL Liver Function 05/20/25 05/20/25 05/20/25 Range/Units 09:11 09:11 09:11 Total Bilirubin 0.4 0.4 (0.3-1.2) mg/dL AST 58 H 87 H (0-34) U/L ALT 73 H (10-49) U/L Alkaline Phosphatase (46-116) U/L Albumin (3.4-4.8) gm/dL 05/20/25 05/20/25 05/20/25 Range/Units 09:11 09:11 09:11 Total Bilirubin (0.3-1.2) mg/dL AST (0-34) U/L ALT 87 H (10-49) U/L Alkaline Phosphatase 102 118 H (46-116) U/L Albumin 3.2 L 3.7 D (3.4-4.8) gm/dL Urine 05/20/25 05/20/25 Range/Units 09:20 09:32 Urine Color Lt-Yellow Yellow (Lt Yel-Yel) Urine Clarity Clear Clear (Clear/Hazy) Urine pH 6.0 5.5 (5.0-7.0) Ur Specific [place] 1.014 1.023 (1.001-1.035) Urine Protein Negative Trace (Neg - Trace) Urine Glucose (UA) Negative Negative (Negative) Quality Measures Quality Measures VTE prophylaxis Medications Home Medications and Allergies Allergies Allergy/AdvReac Type Severity Reaction Status Date / Time latex Allergy Redness of Verified 05/20/25 08:31 Skin Visit Medications Acetaminophen (Acetaminophen 325 Mg Tablet) 650 mg PO Q6H PRN PRN Reason: Fever >100.3 Stop: 06/19/25 13:25 Acetaminophen (Acetaminophen 325 Mg Tablet) 650 mg PO Q6H PRN PRN Reason: PAIN SCALE 1-3 (mild Stop: 06/19/25 13:25 Ceftriaxone Sodium/Dextrose (Rocephin/D5w 1gm Iv Premix) 1 gm in 50 mls @ 100 mls/hr IV QDAY BORIS Stop: 05/27/25 13:31 Azithromycin 500 mg/ Sodium (Chloride) 250 mls @ 250 mls/hr IV QDAY BORIS Stop: 05/27/25 13:31 Ondansetron HCl (Ondansetron Inj 2 Mg/Ml Inj 2 Ml) 4 mg IVP Q1H PRN PRN Reason: PERSISTENT NAUSEA OR VOMITING Discontinued Medications Lactated Ringer's (Lactated Ringers) 1,000 mls @ 999 mls/hr IV .Q1H1M ONE Stop: 05/20/25 10:14 Last Infusion: 05/20/25 10:34 Dose: Infused Ampicillin Sodium/Sulbactam (Sodium 3 gm/ Sodium Chloride) 50 mls @ 100 mls/hr IV Q6HR BORIS Stop: 05/27/25 10:14 Last Admin: 05/20/25 10:34 Dose: Not Given Ampicillin Sodium/Sulbactam (Sodium 1.5 gm/ Sodium Chloride) 50 mls @ 100 mls/hr IV X1 ONE Stop: 05/20/25 10:14 Last Admin: 05/20/25 10:19 Dose: Not Given Ampicillin Sodium/Sulbactam (Sodium 3 gm/ Sodium Chloride) 50 mls @ 100 mls/hr IV X1 ONE Stop: 05/20/25 10:48 Last Infusion: 05/20/25 11:17 Dose: Infused Pantoprazole Sodium (Pantoprazole Inj 40 Mg Vial) 80 mg IVP X1 ONE Stop: 05/20/25 08:47 Last Admin: 05/20/25 09:17 Dose: 80 mg Pharmacy Consult (Pharmacy To Consult Patient) 1 each XX PRN PRN PRN Reason: CONSULT Stop: 06/19/25 10:00 Assessment & Plan Plan Mr. Omer is a 64 y/o male with PMH Down syndrome, nonverbal, seizures, hypothyroidism who presented to the ED on 05/20 with 2 episodes of hematochezia. Admitted for GI bleed. #GI bleed, lower 2 episodes of large volume hematochezia, 1 episode nonbloody nonbilious emesis. No previous colonoscopy. Not on blood thinners. Recently treated with azithromycin for CAP (completed 3 days) Plan: - Consulted GI, appreciate recs - Pending CT a/p w/o read - NPO. Maintenance fluids LR 125 mL/hr - Pantoprazole 40 mg IV daily #Community acquired pneumonia Recently treated with azithromycin for CAP (completed 3 days). Multiple residents in [facility] with similar sx. Leukocytosis WBC 18.5 on admit CXR: mild opacities b/l lung opacities Plan: - Ceftriaxone 1 g IV daily, Azithromycin 500 mg IV daily - Continuous pulse ox with supplemental O2 PRN - Duoneb q6h - Chest physiotherapy daily - Loratadine 10 mg PO daily (home med) - Pending blood cx, sputum gram stain and cx, cocci #SOURAV On admit BUN 27, CR 1.6 (baseline ~0.9) Most likely prerenal given hematochezia episodes, emesis Received 1L LR in ED Plan: - CTM with daily CMP - Maintenance fluids LR 125 mL/hr #Transaminitis On admit AST 87, ALT 87, alk phos 118 Plan: - CTM wtih daily CMP #Hx seizures Plan: - Keppra 500 mg IV BID (home med) #Hypothyroidism Plan: - Levothyroxine 150 mcg PO daily (home med) #Gout Plan: - Allopurinol 300 mg PO daily (home med) Checklist Dispo: Admit to med tele, pending GI recs Lines: PIV Diet: NPO Bowel Reg: docusate 100 mg PO daily VTE ppx: SCDs GI ppx: n/a Pain mgmt: Meloxicam 7.5 mg QHS (home med), Tylenol PRN Code status: full Plan discussed with Dr. Romain Gonzalez and Dr. Aries Fatima MD PGY1
--- NOTE | 2025-05-20 14:00 | PC.NURSE ---
attempted to call report no answer
[2025-05-20] MEDS: RINGERS LACTATED 1000 ML 1,000 ML 125 ML IV (15:25)
[2025-05-20 15:57] LABS: Cocci Serology, IgM Negative (Negative)
--- NOTE | 2025-05-20 17:02 | PD.IMCONS ---
HPI Data of Consult Requesting Physician: Kaci Fatima MD Primary Care Provider: Kimberly Santana PA-C Consult Narrative Reason for consult: Hematochezia History of present illness: 64 years old male presented to the hospital with 2 large-volume episodes of hematochezia along with known bloody bilious vomiting 1 episode No history obtainable from the patient as patient is nonverbal due to underlying Down syndrome seizure disorder and hypothyroidism history of cc:: cc: Kaci Fatima MD Review of Systems Review of Systems Systems Reviewed: All systems reviewed, normal except as documented Past Medical History Surgical History OTHER SURGICAL HX: As in the history of present illness Meds Home Medications and Allergies Allergies Allergy/AdvReac Type Severity Reaction Status Date / Time latex Allergy Redness of Verified 05/20/25 08:31 Skin Exam Vital Signs Temp Pulse Resp BP Pulse Ox O2 Del Method 97.5 F 81 16 134/92 H 92 L Room Air 05/20/25 16:00 05/20/25 16:00 05/20/25 16:00 05/20/25 16:00 05/20/25 16:00 05/20/25 16:00 Constitutional Comments: Chronically ill-appearing Routine Respiratory Exam Comments: Soft nontender Results Labs 05/20/25 09:11 05/20/25 09:11 Labs: Short CBC 05/20/25 Range/Units 09:11 WBC 18.5 H (3.8-10.6) Thou/mm3 Hgb 14.3 (13.5-16.0) g/dL Hct 43.6 (41.0-53.0) % Plt Count 159 (140-440) Thou/mm3 BMP 05/20/25 05/20/25 05/20/25 09:11 09:11 09:11 Sodium 142 141 Potassium 4.1 4.7 D Chloride 109 H Carbon Dioxide BUN Creatinine Glucose Calcium 05/20/25 05/20/25 05/20/25 09:11 09:11 09:11 Sodium Potassium Chloride 107 Carbon Dioxide 25.2 25.0 BUN 27 H 27 H Creatinine 1.6 H Glucose Calcium 05/20/25 05/20/25 05/20/25 09:11 09:11 09:11 Sodium Potassium Chloride Carbon Dioxide BUN Creatinine 1.6 H Glucose 119 H 129 H Calcium 8.4 8.8 Cardiac Enzymes 05/20/25 Range/Units 09:11 Troponin I < 0.020 (0.0-0.045) ng/mL Liver Function 05/20/25 05/20/25 05/20/25 Range/Units 09:11 09:11 09:11 Total Bilirubin 0.4 0.4 (0.3-1.2) mg/dL AST 58 H 87 H (0-34) U/L ALT 73 H (10-49) U/L Alkaline Phosphatase (46-116) U/L Albumin (3.4-4.8) gm/dL 05/20/25 05/20/25 05/20/25 Range/Units 09:11 09:11 09:11 Total Bilirubin (0.3-1.2) mg/dL AST (0-34) U/L ALT 87 H (10-49) U/L Alkaline Phosphatase 102 118 H (46-116) U/L Albumin 3.2 L 3.7 D (3.4-4.8) gm/dL Urine 05/20/25 05/20/25 Range/Units 09:20 09:32 Urine Color Lt-Yellow Yellow (Lt Yel-Yel) Urine Clarity Clear Clear (Clear/Hazy) Urine pH 6.0 5.5 (5.0-7.0) Ur Specific [place] 1.014 1.023 (1.001-1.035) Urine Protein Negative Trace (Neg - Trace) Urine Glucose (UA) Negative Negative (Negative) Assessment and Plan Additional Assessment & Plan Additional Plan: # Hematochezia etiology uncertain Differential diagnoses include diverticular source of bleeding versus ischemic colitis versus internal hemorrhoids Plan clear liquid diet GoLytely 4 L p.o. and if patient is not clean give the second gallon If patient does not drink 12 [place] NGT and give GoLytely at 400 cc an hour Serial CBC Will follow the patient Check the results of the CT scan of the abdomen pelvis which are still pending Will follow the patient Other medical problems include Down syndrome Nonverbal Grand mal seizure disorder Hypothyroidism Thank you very much for the opportunity to participate in care of this patient
[2025-05-20] MEDS: cefTRIAXone/D5w 1gm IV premix 1 GM/50 ML BAG IV (17:14)
[2025-05-20] MEDS: NA SU/NAHCO3/KC/PEG (Golytely) 4,000 ML BTL 4000 ML PO (18:17)
[2025-05-20] MEDS: ALBUTEROL/IPRATROPIUM (Duoneb) RT SOL 3 ML NEBU INH (18:41)
[2025-05-20] MEDS: levETIRAcetam INJ 100 MG/ML VIAL 5ML 500 MG IVP (21:08)
[2025-05-20] MEDS: MIRTAZAPINE 15 MG TABLET 7.5 MG PO (21:08)
[2025-05-20] MEDS: MELOXICAM 7.5 MG TABLET PO (21:10)
[2025-05-20] MEDS: DOCUSATE SOD 100 MG CAPSULE PO (21:13)
[2025-05-21] VITALS (10 sets, daily range): BP systolic 95–129; BP diastolic 64–85; PULSE 64–92; RESP 14–96; TEMP 36.1–36.4; O2SAT 93–100
--- NOTE | 2025-05-21 00:07 | XR_ITS ---
EXAMINATION: AP chest single view TECHNIQUE: AP portable semiupright chest single view Date and time: May 21, 2025, 0212 hours INDICATIONS: Post orogastric tube placement. FINDINGS: Orogastric tube in the stomach satisfactory position Moderate heart failure, mild to moderate enlargement cardiac contour, prominent vascular congestion Atelectasis versus pneumonia at the lung bases IMPRESSION: Orogastric tube in the stomach satisfactory position
[2025-05-21] MEDS: BENZOCAINE 20% (Hurricaine) SPRAY 1 DOSE TOP (00:22)
[2025-05-21] MEDS: ALBUTEROL/IPRATROPIUM (Duoneb) RT SOL 3 ML NEBU INH ×3 (01:17→20:26)
--- NOTE | 2025-05-21 02:10 | PRELIM_ITS ---
Radiograph of the chest (single view). May 21, 2025 0206 hours Clinical history: NGT placement No prior study is available for comparison. Findings: The nasogastric catheter is noted with its tip in the proximal stomach and side port just distal to the gastro-esophageal junction. The heart, mediastinum and pulmonary jennifer are unremarkable. There are prominent interstitial markings bilaterally. There are patchy opacities in the bilateral lower lungs. There is small right pleural effusion. Gas distended bowel loops are noted in the upper abdomen. Osseous degenerative changes are noted. Impression: Nasogastric catheter with its tip in the proximal stomach and side port just distal to the gastro-esophageal junction. Recommend further advancement by about 5-6 cm Patchy opacities in the bilateral lower lungs, likely of infectious etiology. Recommend clinical correlation. Small right pleural effusion. Discussion Details: Results verbally communicated to Jacqueline Goode RN at 05:06 AM ET 05/21/2025. A call back number was provided to facilitate a direct physician to physician communication. Report Electronically Signed By: Cedric Ennis 05/21/2025 2:09:06 AM [EST]
--- NOTE | 2025-05-21 02:13 | XR_ITS ---
EXAMINATION: AP chest single view TECHNIQUE: AP portable semiupright chest single view Date and time: May 21, 2025, 0331 hours, comparison May 21, 2025 0212 hours INDICATIONS: Reposition orogastric tube FINDINGS: Orogastric tube tip distal stomach Heart failure pattern again noted with possible bibasilar pneumonia IMPRESSION: Orogastric tube tip distal stomach
--- NOTE | 2025-05-21 03:22 | PRELIM_ITS ---
Radiograph of the chest (single view). May 21, 2025 0327 hours Clinical History: Advancing NGT 6cm, confirming placement Technique: Single AP view of the chest is obtained Comparison: 05/21/25 at 2:06 AM Findings: Cardiac silhouette is mildly enlarged. There is pulmonary vascular congestion. There are patchy bibasilar opacity which may represent atelectasis and/or pneumonia. Small pleural effusions are not excluded. There is no pneumothorax. There is degenerative change in the spine. Nasogastric noted with distal tip in the antrum of the stomach. Impression: Mildly enlarged cardiac silhouette and pulmonary vascular congestion. Patchy bibasilar opacities may represent atelectasis and/or pneumonia. Small pleural effusions are not excluded. Recommend follow-up chest radiograph to document resolution. Report Electronically Signed By: Gualberto Nicholas 05/21/2025 3:22:28 AM [EST]
[2025-05-21 05:37] LABS: Basophils # (Auto) 0.1 Thou/mm3 (0.0-0.2); Basophils % (Auto) 0 % (0-2.5); Eosinophils # (Auto) 0.1 Thou/mm3 (0.0-0.5); Eosinophils % (Auto) 1 % (0-10); Hematocrit 35.8 % (41.0-53.0); Hemoglobin 11.7 g/dL (13.5-16.0); Immature Granulocytes Auto 0.06 Thou/mm3 (0.00-0.00); Lymphocytes # (Auto) 0.9 Thou/mm3 (1.0-4.8); Lymphocytes % (Auto) 6 % (10-50); Mean Corpuscular HGB Conc 32.7 g/dl (31.0-37.0); Mean Corpuscular Hemoglobin 29.8 pg (25.0-35.0); Mean Corpuscular Volume 91 fL (80-100); Monocytes # (Auto) 1.0 Thou/mm3 (0.0-0.8); Monocytes % (Auto) 6 % (0-12); Neutrophils # (Auto) 13.1 Thou/mm3 (1.8-7.7); Neutrophils % (Auto) 86 % (37-80); Nucleated Red Blood Cell # 0.00 Thou/mm3 (0.00-0.00); Nucleated Red Blood Cell % 0 /100 WBC (0); Platelet Count 153 Thou/mm3 (140-440); RDW Standard Deviation 55.9 fL (35.1-43.9); Red Blood Count 3.92 Miln/mm3 (4.50-5.90); White Blood Count 15.2 Thou/mm3 (3.8-10.6)
[2025-05-21 06:05] LABS: Alanine Aminotransferase 47 U/L (10-49); Albumin, Serum 3.1 gm/dL (3.4-4.8); Albumin/Globulin Ratio 1.2 (1.2-2.2); Alkaline Phosphatase 109 U/L (46-116); Anion Gap 10 (7-16); Aspartate Amino Transferase 36 U/L (0-34); BUN/Creatinine Ratio 18 Ratio (12-20); Bilirubin,Total 0.4 mg/dL (0.3-1.2); Blood Urea Nitrogen 21 mg/dL (9-23); Calcium 8.2 mg/dL (8.3-10.6); Calcium (Corrected) 8.9 mg/dL (8.5-10.1); Carbon Dioxide 26.4 mMol/L (20.0-31.0); Chloride 107 mMol/L (98-107); Creatinine (Component) 1.2 mg/dL (0.6-1.3); Estimated Creatinine Clearance 49.5 mL/min (>60); Globulin 2.5 gm/dL (2.3-3.5); Glucose 102 mg/dL (74-106); Magnesium 1.8 mg/dL (1.6-2.6); Osmolality,Calculated 287 (275-295); Phosphorous 3.3 mg/dL (2.4-5.1); Potassium 3.9 mMol/L (3.4-5.1); Sodium 143 mMol/L (136-145); Total Protein 5.6 gm/dL (5.7-8.2); eGFR > 60 See Note
--- NOTE | 2025-05-21 08:25 | ESPR_ITS ---
<Statement entered by Kathie Gonzalez MD - 05/22/25 07:00> Pt is seen at bedside, no new complaints. Caregiver is also at bedside and is informed regarding non-incarcerated inguinal hernia found on CT scan which will require outpatient evaluation and management. Caregiver also informed pt has been requiring more assistance with feedings which is unusual for him. Will order swallow evaluation. Pt is currently undergoing golytly prep for colonoscopy. Patient was seen and examined by me personally. I have directly supervised and reviewed documentation by the team resident and agree with its findings. ------- Plan of care was discussed with the attending, Dr. Sascha Gonzalez, PGY-2 Documentation for date of: 05/21/25 Subjective Subjective Interval history: NAEO. Patient evaluated at bedside, sleeping comfortably in bed with OG tube in place for GoLytely administration. Exam Vital Signs Temp Pulse Resp BP Pulse Ox O2 Del Method 97.0 F 64 19 127/73 99 Room Air 05/21/25 04:00 05/21/25 07:07 05/21/25 07:07 05/21/25 04:00 05/21/25 07:07 05/21/25 04:00 Narrative Exam General: No acute distress, well nourished Eye: PERRL, EOMI, normal conjunctiva, no scleral icterus HENT: Normocephalic, atraumatic, normal hearing, moist oral mucosa, adentulous, OG tube in place Neck: Supple, non-tender, no JVD, no lymphadenopathy Lungs: Non-labored respirations, symmetric chest rise, no use of accessory muscles. Breath sounds vesicular without crackles, wheezing or rhonchi Heart: Normal S1 and S2, no S3 or S4 appreciated. Normal rate and regular rhythm, no murmurs, rubs gallops, or edema. Peripheral pulses intact bilaterally, capillary refill brisk distally Abdomen: Soft, non-distended, normal bowel sounds. Grimacing to abdominal palpation diffusely Musculoskeletal: Normal range of motion and strength, no tenderness or swelling Skin: Skin is warm, dry, no rashes or lesions. Neurologic: Nonverbal Objective Labs 05/22/25 05:02 05/22/25 05:02 Labs: Laboratory Results - last 24 hr 05/20/25 05/20/25 05/20/25 08:46 09:11 09:11 WBC 18.5 H RBC 4.80 Hgb 14.3 Hct 43.6 MCV 91 MCH 29.8 MCHC 32.8 RDW Std Deviation 55.8 H Plt Count 159 Neut % (Auto) 89 H Lymph % (Auto) 5 L [place] % (Auto) 4 Eos % (Auto) 0 Baso % (Auto) 0 Neut # (Auto) 16.5 H Lymph # (Auto) 1.0 [place] # (Auto) 0.8 Eos # (Auto) 0.0 Baso # (Auto) 0.1 Immature Gran # (Auto) 0.14 H Absolute Nucleated RBC 0.00 Immature Gran % 1 H Nucleated RBC % 0 PT 12.9 H INR 1.2 APTT 30.1 Sodium 142 141 Potassium 4.1 Chloride Carbon Dioxide Anion Gap BUN Creatinine Estim Creat Clear Calc eGFR BUN/Creatinine Ratio Glucose Calculated Osmolality Lactic Acid Calcium Corrected Calcium Phosphorus Magnesium Total Bilirubin AST ALT Alkaline Phosphatase Troponin I C-Reactive Prot, Quant Total Protein Albumin Globulin Albumin/Globulin Ratio Amylase Lipase Procalcitonin TSH Ur Collection Type Urine Color Urine Clarity Urine pH Ur Specific [place] Urine Protein Urine Glucose (UA) Urine Ketones Urine Blood Urine Nitrite Urine Bilirubin Urine Urobilinogen (Auto) Ur Leukocyte Esterase Urine RBC Urine WBC Ur Squamous Epith Cells Urine Bacteria Ur Culture Indicated? Ur Random Creatinine Ur Random Sodium Ur Random Potassium Ur Random Chloride Stool Occult Blood Positive A Urine Opiates Screen Urine Fentanyl Screen Ur Barbiturates Screen U Amphetamin/Meth Scrn U Benzodiazepines Scrn U Cocaine Metab Screen U Marijuana (THC) Screen Coccidioides IgM Ab Influenza A (Rapid) Influenza B (Rapid) Blood Type Antibody Screen Blood Bank Wristband ID 05/20/25 05/20/25 05/20/25 09:11 09:11 09:11 WBC RBC Hgb Hct MCV MCH MCHC RDW Std Deviation Plt Count Neut % (Auto) Lymph % (Auto) [place] % (Auto) Eos % (Auto) Baso % (Auto) Neut # (Auto) Lymph # (Auto) [place] # (Auto) Eos # (Auto) Baso # (Auto) Immature Gran # (Auto) Absolute Nucleated RBC Immature Gran % Nucleated RBC % PT INR APTT Sodium Potassium 4.7 D Chloride 109 H 107 Carbon Dioxide 25.2 25.0 Anion Gap 8 BUN Creatinine Estim Creat Clear Calc eGFR BUN/Creatinine Ratio Glucose Calculated Osmolality Lactic Acid Calcium Corrected Calcium Phosphorus Magnesium Total Bilirubin AST ALT Alkaline Phosphatase Troponin I C-Reactive Prot, Quant Total Protein Albumin Globulin Albumin/Globulin Ratio Amylase Lipase Procalcitonin TSH Ur Collection Type Urine Color Urine Clarity Urine pH Ur Specific [place] Urine Protein Urine Glucose (UA) Urine Ketones Urine Blood Urine Nitrite Urine Bilirubin Urine Urobilinogen (Auto) Ur Leukocyte Esterase Urine RBC Urine WBC Ur Squamous Epith Cells Urine Bacteria Ur Culture Indicated? Ur Random Creatinine Ur Random Sodium Ur Random Potassium Ur Random Chloride Stool Occult Blood Urine Opiates Screen Urine Fentanyl Screen Ur Barbiturates Screen U Amphetamin/Meth Scrn U Benzodiazepines Scrn U Cocaine Metab Screen U Marijuana (THC) Screen Coccidioides IgM Ab Influenza A (Rapid) Influenza B (Rapid) Blood Type Antibody Screen Blood Bank Wristband ID 05/20/25 05/20/25 05/20/25 09:11 09:11 09:11 WBC RBC Hgb Hct MCV MCH MCHC RDW Std Deviation Plt Count Neut % (Auto) Lymph % (Auto) [place] % (Auto) Eos % (Auto) Baso % (Auto) Neut # (Auto) Lymph # (Auto) [place] # (Auto) Eos # (Auto) Baso # (Auto) Immature Gran # (Auto) Absolute Nucleated RBC Immature Gran % Nucleated RBC % PT INR APTT Sodium Potassium Chloride Carbon Dioxide Anion Gap 9 BUN 27 H 27 H Creatinine 1.6 H 1.6 H Estim Creat Clear Calc 37.8 L eGFR BUN/Creatinine Ratio Glucose Calculated Osmolality Lactic Acid Calcium Corrected Calcium Phosphorus Magnesium Total Bilirubin AST ALT Alkaline Phosphatase Troponin I C-Reactive Prot, Quant Total Protein Albumin Globulin Albumin/Globulin Ratio Amylase Lipase Procalcitonin TSH Ur Collection Type Urine Color Urine Clarity Urine pH Ur Specific [place] Urine Protein Urine Glucose (UA) Urine Ketones Urine Blood Urine Nitrite Urine Bilirubin Urine Urobilinogen (Auto) Ur Leukocyte Esterase Urine RBC Urine WBC Ur Squamous Epith Cells Urine Bacteria Ur Culture Indicated? Ur Random Creatinine Ur Random Sodium Ur Random Potassium Ur Random Chloride Stool Occult Blood Urine Opiates Screen Urine Fentanyl Screen Ur Barbiturates Screen U Amphetamin/Meth Scrn U Benzodiazepines Scrn U Cocaine Metab Screen U Marijuana (THC) Screen Coccidioides IgM Ab Influenza A (Rapid) Influenza B (Rapid) Blood Type Antibody Screen Blood Bank Wristband ID 05/20/25 05/20/25 05/20/25 09:11 09:11 09:11 WBC RBC Hgb Hct MCV MCH MCHC RDW Std Deviation Plt Count Neut % (Auto) Lymph % (Auto) [place] % (Auto) Eos % (Auto) Baso % (Auto) Neut # (Auto) Lymph # (Auto) [place] # (Auto) Eos # (Auto) Baso # (Auto) Immature Gran # (Auto) Absolute Nucleated RBC Immature Gran % Nucleated RBC % PT INR APTT Sodium Potassium Chloride Carbon Dioxide Anion Gap BUN Creatinine Estim Creat Clear Calc 37.8 L eGFR 48 L 48 L BUN/Creatinine Ratio 17 17 Glucose 119 H Calculated Osmolality Lactic Acid Calcium Corrected Calcium Phosphorus Magnesium Total Bilirubin AST ALT Alkaline Phosphatase Troponin I C-Reactive Prot, Quant Total Protein Albumin Globulin Albumin/Globulin Ratio Amylase Lipase Procalcitonin TSH Ur Collection Type Urine Color Urine Clarity Urine pH Ur Specific [place] Urine Protein Urine Glucose (UA) Urine Ketones Urine Blood Urine Nitrite Urine Bilirubin Urine Urobilinogen (Auto) Ur Leukocyte Esterase Urine RBC Urine WBC Ur Squamous Epith Cells Urine Bacteria Ur Culture Indicated? Ur Random Creatinine Ur Random Sodium Ur Random Potassium Ur Random Chloride Stool Occult Blood Urine Opiates Screen Urine Fentanyl Screen Ur Barbiturates Screen U Amphetamin/Meth Scrn U Benzodiazepines Scrn U Cocaine Metab Screen U Marijuana (THC) Screen Coccidioides IgM Ab Influenza A (Rapid) Influenza B (Rapid) Blood Type Antibody Screen Blood Bank Wristband ID 05/20/25 05/20/25 05/20/25 09:11 09:11 09:11 WBC RBC Hgb Hct MCV MCH MCHC RDW Std Deviation Plt Count Neut % (Auto) Lymph % (Auto) [place] % (Auto) Eos % (Auto) Baso % (Auto) Neut # (Auto) Lymph # (Auto) [place] # (Auto) Eos # (Auto) Baso # (Auto) Immature Gran # (Auto) Absolute Nucleated RBC Immature Gran % Nucleated RBC % PT INR APTT Sodium Potassium Chloride Carbon Dioxide Anion Gap BUN Creatinine Estim Creat Clear Calc eGFR BUN/Creatinine Ratio Glucose 129 H Calculated Osmolality 289 288 Lactic Acid Calcium 8.4 8.8 Corrected Calcium 9.0 Phosphorus Magnesium Total Bilirubin AST ALT Alkaline Phosphatase Troponin I C-Reactive Prot, Quant Total Protein Albumin Globulin Albumin/Globulin Ratio Amylase Lipase Procalcitonin TSH Ur Collection Type Urine Color Urine Clarity Urine pH Ur Specific [place] Urine Protein Urine Glucose (UA) Urine Ketones Urine Blood Urine Nitrite Urine Bilirubin Urine Urobilinogen (Auto) Ur Leukocyte Esterase Urine RBC Urine WBC Ur Squamous Epith Cells Urine Bacteria Ur Culture Indicated? Ur Random Creatinine Ur Random Sodium Ur Random Potassium Ur Random Chloride Stool Occult Blood Urine Opiates Screen Urine Fentanyl Screen Ur Barbiturates Screen U Amphetamin/Meth Scrn U Benzodiazepines Scrn U Cocaine Metab Screen U Marijuana (THC) Screen Coccidioides IgM Ab Influenza A (Rapid) Influenza B (Rapid) Blood Type Antibody Screen Blood Bank Wristband ID 05/20/25 05/20/25 05/20/25 09:11 09:11 09:11 WBC RBC Hgb Hct MCV MCH MCHC RDW Std Deviation Plt Count Neut % (Auto) Lymph % (Auto) [place] % (Auto) Eos % (Auto) Baso % (Auto) Neut # (Auto) Lymph # (Auto) [place] # (Auto) Eos # (Auto) Baso # (Auto) Immature Gran # (Auto) Absolute Nucleated RBC Immature Gran % Nucleated RBC % PT INR APTT Sodium Potassium Chloride Carbon Dioxide Anion Gap BUN Creatinine Estim Creat Clear Calc eGFR BUN/Creatinine Ratio Glucose Calculated Osmolality Lactic Acid Calcium Corrected Calcium 9.0 Phosphorus 3.0 Magnesium 2.0 Total Bilirubin 0.4 0.4 AST 58 H 87 H ALT 73 H Alkaline Phosphatase Troponin I C-Reactive Prot, Quant Total Protein Albumin Globulin Albumin/Globulin Ratio Amylase Lipase Procalcitonin TSH Ur Collection Type Urine Color Urine Clarity Urine pH Ur Specific [place] Urine Protein Urine Glucose (UA) Urine Ketones Urine Blood Urine Nitrite Urine Bilirubin Urine Urobilinogen (Auto) Ur Leukocyte Esterase Urine RBC Urine WBC Ur Squamous Epith Cells Urine Bacteria Ur Culture Indicated? Ur Random Creatinine Ur Random Sodium Ur Random Potassium Ur Random Chloride Stool Occult Blood Urine Opiates Screen Urine Fentanyl Screen Ur Barbiturates Screen U Amphetamin/Meth Scrn U Benzodiazepines Scrn U Cocaine Metab Screen U Marijuana (THC) Screen Coccidioides IgM Ab Influenza A (Rapid) Influenza B (Rapid) Blood Type Antibody Screen Blood Bank Wristband ID 05/20/25 05/20/25 05/20/25 09:11 09:11 09:11 WBC RBC Hgb Hct MCV MCH MCHC RDW Std Deviation Plt Count Neut % (Auto) Lymph % (Auto) [place] % (Auto) Eos % (Auto) Baso % (Auto) Neut # (Auto) Lymph # (Auto) [place] # (Auto) Eos # (Auto) Baso # (Auto) Immature Gran # (Auto) Absolute Nucleated RBC Immature Gran % Nucleated RBC % PT INR APTT Sodium Potassium Chloride Carbon Dioxide Anion Gap BUN Creatinine Estim Creat Clear Calc eGFR BUN/Creatinine Ratio Glucose Calculated Osmolality Lactic Acid Calcium Corrected Calcium Phosphorus Magnesium Total Bilirubin AST ALT 87 H Alkaline Phosphatase 102 118 H Troponin I < 0.020 C-Reactive Prot, Quant 11.5 H Total Protein 5.8 6.7 Albumin 3.2 L Globulin Albumin/Globulin Ratio Amylase Lipase Procalcitonin TSH Ur Collection Type Urine Color Urine Clarity Urine pH Ur Specific [place] Urine Protein Urine Glucose (UA) Urine Ketones Urine Blood Urine Nitrite Urine Bilirubin Urine Urobilinogen (Auto) Ur Leukocyte Esterase Urine RBC Urine WBC Ur Squamous Epith Cells Urine Bacteria Ur Culture Indicated? Ur Random Creatinine Ur Random Sodium Ur Random Potassium Ur Random Chloride Stool Occult Blood Urine Opiates Screen Urine Fentanyl Screen Ur Barbiturates Screen U Amphetamin/Meth Scrn U Benzodiazepines Scrn U Cocaine Metab Screen U Marijuana (THC) Screen Coccidioides IgM Ab Influenza A (Rapid) Influenza B (Rapid) Blood Type Antibody Screen Blood Bank Wristband ID 05/20/25 05/20/25 05/20/25 09:11 09:11 09:11 WBC RBC Hgb Hct MCV MCH MCHC RDW Std Deviation Plt Count Neut % (Auto) Lymph % (Auto) [place] % (Auto) Eos % (Auto) Baso % (Auto) Neut # (Auto) Lymph # (Auto) [place] # (Auto) Eos # (Auto) Baso # (Auto) Immature Gran # (Auto) Absolute Nucleated RBC Immature Gran % Nucleated RBC % PT INR APTT Sodium Potassium Chloride Carbon Dioxide Anion Gap BUN Creatinine Estim Creat Clear Calc eGFR BUN/Creatinine Ratio Glucose Calculated Osmolality Lactic Acid Calcium Corrected Calcium Phosphorus Magnesium Total Bilirubin AST ALT Alkaline Phosphatase Troponin I C-Reactive Prot, Quant Total Protein Albumin 3.7 D Globulin 2.6 3.0 Albumin/Globulin Ratio 1.2 1.2 Amylase 37 Lipase 17 Procalcitonin 20.71 H TSH 2.06 Ur Collection Type Urine Color Urine Clarity Urine pH Ur Specific [place] Urine Protein Urine Glucose (UA) Urine Ketones Urine Blood Urine Nitrite Urine Bilirubin Urine Urobilinogen (Auto) Ur Leukocyte Esterase Urine RBC Urine WBC Ur Squamous Epith Cells Urine Bacteria Ur Culture Indicated? Ur Random Creatinine Ur Random Sodium Ur Random Potassium Ur Random Chloride Stool Occult Blood Urine Opiates Screen Urine Fentanyl Screen Ur Barbiturates Screen U Amphetamin/Meth Scrn U Benzodiazepines Scrn U Cocaine Metab Screen U Marijuana (THC) Screen Coccidioides IgM Ab Negative Influenza A (Rapid) Influenza B (Rapid) Blood Type A Negative Antibody Screen NEGATIVE Blood Bank Wristband ID Yes 05/20/25 05/20/25 05/20/25 09:20 09:32 10:07 WBC RBC Hgb Hct MCV MCH MCHC RDW Std Deviation Plt Count Neut % (Auto) Lymph % (Auto) [place] % (Auto) Eos % (Auto) Baso % (Auto) Neut # (Auto) Lymph # (Auto) [place] # (Auto) Eos # (Auto) Baso # (Auto) Immature Gran # (Auto) Absolute Nucleated RBC Immature Gran % Nucleated RBC % PT INR APTT Sodium Potassium Chloride Carbon Dioxide Anion Gap BUN Creatinine Estim Creat Clear Calc eGFR BUN/Creatinine Ratio Glucose Calculated Osmolality Lactic Acid 1.9 Calcium Corrected Calcium Phosphorus Magnesium Total Bilirubin AST ALT Alkaline Phosphatase Troponin I C-Reactive Prot, Quant Total Protein Albumin Globulin Albumin/Globulin Ratio Amylase Lipase Procalcitonin TSH Ur Collection Type Clean Catch Catheter Urine Color Lt-Yellow Yellow Urine Clarity Clear Clear Urine pH 6.0 5.5 Ur Specific [place] 1.014 1.023 Urine Protein Negative Trace Urine Glucose (UA) Negative Negative Urine Ketones Trace Negative Urine Blood Negative 3+ A Urine Nitrite Negative Negative Urine Bilirubin Negative Negative Urine Urobilinogen (Auto) Negative Negative Ur Leukocyte Esterase Negative Negative Urine RBC 0 7 H Urine WBC < 1 2 Ur Squamous Epith Cells 0 < 1 Urine Bacteria None None Ur Culture Indicated? Not Indicated Not Indicated Ur Random Creatinine 159 H Ur Random Sodium 47.5 Ur Random Potassium 43 Ur Random Chloride 33.0 L Stool Occult Blood Urine Opiates Screen Negative Urine Fentanyl Screen Negative Ur Barbiturates Screen Negative U Amphetamin/Meth Scrn Negative U Benzodiazepines Scrn Negative U Cocaine Metab Screen Negative U Marijuana (THC) Screen Negative Coccidioides IgM Ab Influenza A (Rapid) Influenza B (Rapid) Blood Type Antibody Screen Blood Bank Wristband ID 05/20/25 05/21/25 10:10 04:28 WBC 15.2 H RBC 3.92 L Hgb 11.7 L D Hct 35.8 L MCV 91 MCH 29.8 MCHC 32.7 RDW Std Deviation 55.9 H Plt Count 153 Neut % (Auto) 86 H Lymph % (Auto) 6 L [place] % (Auto) 6 Eos % (Auto) 1 Baso % (Auto) 0 Neut # (Auto) 13.1 H Lymph # (Auto) 0.9 L [place] # (Auto) 1.0 H Eos # (Auto) 0.1 Baso # (Auto) 0.1 Immature Gran # (Auto) 0.06 H Absolute Nucleated RBC 0.00 Immature Gran % 0 Nucleated RBC % 0 PT INR APTT Sodium 143 Potassium 3.9 D Chloride 107 Carbon Dioxide 26.4 Anion Gap 10 BUN 21 Creatinine 1.2 Estim Creat Clear Calc 49.5 L eGFR > 60 BUN/Creatinine Ratio 18 Glucose 102 Calculated Osmolality 287 Lactic Acid Calcium 8.2 L Corrected Calcium 8.9 Phosphorus 3.3 Magnesium 1.8 Total Bilirubin 0.4 AST 36 H ALT 47 Alkaline Phosphatase 109 Troponin I C-Reactive Prot, Quant Total Protein 5.6 L Albumin 3.1 L D Globulin 2.5 Albumin/Globulin Ratio 1.2 Amylase Lipase Procalcitonin TSH Ur Collection Type Urine Color Urine Clarity Urine pH Ur Specific [place] Urine Protein Urine Glucose (UA) Urine Ketones Urine Blood Urine Nitrite Urine Bilirubin Urine Urobilinogen (Auto) Ur Leukocyte Esterase Urine RBC Urine WBC Ur Squamous Epith Cells Urine Bacteria Ur Culture Indicated? Ur Random Creatinine Ur Random Sodium Ur Random Potassium Ur Random Chloride Stool Occult Blood Urine Opiates Screen Urine Fentanyl Screen Ur Barbiturates Screen U Amphetamin/Meth Scrn U Benzodiazepines Scrn U Cocaine Metab Screen U Marijuana (THC) Screen Coccidioides IgM Ab Influenza A (Rapid) Negative Influenza B (Rapid) Negative Blood Type Antibody Screen Blood Bank Wristband ID Quality Measures Quality Measures VTE prophylaxis Assessment & Plan Assessment Current Active Medications: Generic Name Dose Route Start Last Admin Trade Name Freq PRN Reason Stop Dose Admin Acetaminophen 650 mg 05/20/25 13:26 Acetaminophen 325 Mg Tablet PO 06/19/25 13:25 Q6H PRN Fever >100.3 Acetaminophen 650 mg 05/20/25 13:26 Acetaminophen 325 Mg Tablet PO 06/19/25 13:25 Q6H PRN PAIN SCALE 1-3 (mild Albuterol/Ipratropium 3 ml 05/20/25 19:00 05/21/25 07:07 Albuterol/Ipratropium (Duoneb) Rt Lisha 3 Ml Nebu INH 06/19/25 18:59 3 ml Q6HRRT BORIS Administration Allopurinol 300 mg 05/21/25 09:00 Allopurinol 100 Mg Tablet PO 06/20/25 08:59 QDAY BORIS Docusate Sodium 100 mg 05/20/25 21:00 05/20/25 21:13 Docusate Sod 100 Mg Capsule PO 06/19/25 20:59 100 mg BID BORIS Administration Protocol Ceftriaxone Sodium/Dextrose 1 gm in 50 mls @ 100 mls/hr 05/20/25 17:00 05/20/25 17:14 Rocephin/D5w 1gm Iv Premix IV 05/27/25 16:59 100 mls/hr QDAY@1700 BORIS Administration Levetiracetam 500 mg 05/20/25 21:00 05/20/25 21:08 Levetiracetam Inj 100 Mg/Ml Vial 5ml IVP 06/19/25 20:59 500 mg Q12HR BORIS Administration Levothyroxine Sodium 100 mcg/ 150 mcg 05/21/25 06:00 05/21/25 05:58 Levothyroxine Sodium 50 mcg PO 06/20/25 05:59 150 mcg ACBR BORIS Administration Loratadine 10 mg 05/21/25 09:00 Loratadine 10 Mg Tablet PO 06/20/25 08:59 QDAY BORIS Meloxicam 7.5 mg 05/20/25 21:00 05/20/25 21:10 Meloxicam 7.5 Mg Tablet PO 06/19/25 20:59 7.5 mg HS BORIS Administration Mirtazapine 7.5 mg 05/20/25 21:00 05/20/25 21:08 Mirtazapine 15 Mg Tablet PO 06/19/25 20:59 7.5 mg HS BORIS Administration Ondansetron HCl 4 mg 05/20/25 08:46 Ondansetron Inj 2 Mg/Ml Inj 2 Ml IVP Q1H PRN PERSISTENT NAUSEA OR VOMITING Pantoprazole Sodium 40 mg 05/21/25 09:00 Pantoprazole Inj 40 Mg Vial IVP 06/20/25 08:59 QDAY BORIS Plan Mr. Omer is a 64 y/o male with PMH Down syndrome, nonverbal, seizures, hypothyroidism who presented to the ED on 05/20 with 2 episodes of hematochezia. Admitted for GI bleed. #GI bleed, lower 2 episodes of large volume hematochezia, 1 episode nonbloody nonbilious emesis. No previous colonoscopy. Not on blood thinners. Plan: - Consulted GI, appreciate recs - plan for colonoscopy, getting GoLytely through OG tube - Pantoprazole 40 mg IV daily #Community acquired pneumonia Recently treated with azithromycin for CAP (completed 3 days). Multiple residents in assisted with similar sx. Leukocytosis WBC 18.5 on admit CXR: mild opacities b/l lung opacities Plan: - Ceftriaxone 1 g IV daily, Azithromycin 500 mg IV daily - Continuous pulse ox with supplemental O2 PRN - Duoneb q6h - Chest physiotherapy daily - Loratadine 10 mg PO daily (home med) - Pending blood cx, sputum gram stain and cx, cocci #SOURAV - resolved On admit BUN 27, CR 1.6 (baseline ~0.9) Most likely prerenal given hematochezia episodes, emesis Received 1L LR in ED, now on clears Plan: - CTM with daily CMP #Transaminitis On admit AST 87, ALT 87, alk phos 118 Plan: - CTM wtih daily CMP #Right inguinal hernia with bowel, not incarcerated #Left inguinal hernia with bladder Seen on CT a/p Plan: - F/U outpatient given no incarceration #Hx seizures Plan: - Keppra 500 mg IV BID (home med) #Hypothyroidism Plan: - Levothyroxine 150 mcg PO daily (home med) #Gout Plan: - Allopurinol 300 mg PO daily (home med) Checklist Dispo: Admit to med tele, pending colonoscopy Lines: PIV Diet: Clears Bowel Reg: docusate 100 mg PO daily VTE ppx: SCDs GI ppx: n/a Pain mgmt: Meloxicam 7.5 mg QHS (home med), Tylenol PRN Code status: full Plan discussed with Dr. Romain Gonzalez and Dr. Nick Fatima MD PGY1 Attending Provider Attestation/Addendum I, Genie Caicedo DO, attest that I was physically present for the beltran portions of the service and evaluated the patient with the resident and I reviewed and discussed the case with the resident and agree with the resident's findings and plans of care as documented above Patient seen and evaluated this AM. Patient has NG tube in place for Golytely. Per nursing, patient continues to have some stool in BM. Scheduled for colonoscopy this evening. Patient's color print inspector at bedside, she has requested for patient to be seen by speech therapy once colonoscopy is completed and diet is advanced. Patient is at his baseline mental status, tracking with eyes and moving all four extremities spontaneously. Patient is ambulatory at baseline, but color print inspector has seen a decline with age and he will only ambulate to kitchen or bathroom if necessary. Patient does not have family members, but decisions are made by [facility]. No acute events overnight otherwise.
[2025-05-21] MEDS: levETIRAcetam INJ 100 MG/ML VIAL 5ML 500 MG IVP ×2 (09:01→21:34)
--- NOTE | 2025-05-21 14:48 | PC.SS ---
Rounding: Pending colonoscopy, DC plan home
[2025-05-21] MEDS: cefTRIAXone/D5w 1gm IV premix 1 GM/50 ML BAG IV (16:58)
[2025-05-21] MEDS: NA SU/NAHCO3/KC/PEG (Golytely) 4,000 ML BTL 4000 ML PO (16:58)
--- NOTE | 2025-05-21 17:30 | PD.IMPROG ---
Documentation for date of: 05/21/25 Subjective Subjective Interval history: Patient evaluated He was on the schedule for colonoscopy but not clear additional GoLytely prep Exam Vital Signs Temp Pulse Resp BP Pulse Ox O2 Del Method 97.0 F 66 14 120/71 95 Room Air 05/21/25 16:00 05/21/25 16:00 05/21/25 16:00 05/21/25 16:00 05/21/25 16:00 05/21/25 16:00 Objective Labs 05/21/25 04:28 05/21/25 04:28 Labs: Laboratory Results - last 24 hr 05/21/25 04:28 WBC 15.2 H RBC 3.92 L Hgb 11.7 L D Hct 35.8 L MCV 91 MCH 29.8 MCHC 32.7 RDW Std Deviation 55.9 H Plt Count 153 Neut % (Auto) 86 H Lymph % (Auto) 6 L [place] % (Auto) 6 Eos % (Auto) 1 Baso % (Auto) 0 Neut # (Auto) 13.1 H Lymph # (Auto) 0.9 L [place] # (Auto) 1.0 H Eos # (Auto) 0.1 Baso # (Auto) 0.1 Immature Gran # (Auto) 0.06 H Absolute Nucleated RBC 0.00 Immature Gran % 0 Nucleated RBC % 0 Sodium 143 Potassium 3.9 D Chloride 107 Carbon Dioxide 26.4 Anion Gap 10 BUN 21 Creatinine 1.2 Estim Creat Clear Calc 49.5 L eGFR > 60 BUN/Creatinine Ratio 18 Glucose 102 Calculated Osmolality 287 Calcium 8.2 L Corrected Calcium 8.9 Phosphorus 3.3 Magnesium 1.8 Total Bilirubin 0.4 AST 36 H ALT 47 Alkaline Phosphatase 109 Total Protein 5.6 L Albumin 3.1 L D Globulin 2.5 Albumin/Globulin Ratio 1.2 Impressions Impression: # Hematochezia Continue GoLytely Continue colonic prep Assessment & Plan A&P Narrative # Hematochezia etiology uncertain Differential diagnoses include diverticular source of bleeding versus ischemic colitis versus internal hemorrhoids Plan clear liquid diet GoLytely 4 L p.o. and if patient is not clean give the second gallon If patient does not drink 12 [place] NGT and give GoLytely at 400 cc an hour Serial CBC Will follow the patient Check the results of the CT scan of the abdomen pelvis which are still pending Will follow the patient Other medical problems include Down syndrome Nonverbal Grand mal seizure disorder Hypothyroidism Thank you very much for the opportunity to participate in care of this patient Time Spent With Patient Time: Total time spent is greater than 50% in coordination of care (as documented) at patient's floor/unit and/or counseling patient:
[2025-05-21] MEDS: MIRTAZAPINE 15 MG TABLET 7.5 MG PO (21:34)
[2025-05-21] MEDS: MELOXICAM 7.5 MG TABLET PO (21:37)
[2025-05-22] VITALS (18 sets, daily range): BP systolic 103–145; BP diastolic 62–98; PULSE 55–84; RESP 11–95; TEMP 36.1–36.7; O2SAT 90–98
[2025-05-22] MEDS: ALBUTEROL/IPRATROPIUM (Duoneb) RT SOL 3 ML NEBU INH ×3 (02:05→13:25)
[2025-05-22 06:29] LABS: Basophils # (Auto) 0.1 Thou/mm3 (0.0-0.2); Basophils % (Auto) 1 % (0-2.5); Eosinophils # (Auto) 0.2 Thou/mm3 (0.0-0.5); Eosinophils % (Auto) 3 % (0-10); Hematocrit 36.3 % (41.0-53.0); Hemoglobin 11.9 g/dL (13.5-16.0); Immature Granulocytes Auto 0.04 Thou/mm3 (0.00-0.00); Lymphocytes # (Auto) 1.1 Thou/mm3 (1.0-4.8); Lymphocytes % (Auto) 14 % (10-50); Mean Corpuscular HGB Conc 32.8 g/dl (31.0-37.0); Mean Corpuscular Hemoglobin 29.2 pg (25.0-35.0); Mean Corpuscular Volume 89 fL (80-100); Monocytes # (Auto) 0.6 Thou/mm3 (0.0-0.8); Monocytes % (Auto) 7 % (0-12); Neutrophils # (Auto) 6.2 Thou/mm3 (1.8-7.7); Neutrophils % (Auto) 75 % (37-80); Nucleated Red Blood Cell # 0.00 Thou/mm3 (0.00-0.00); Nucleated Red Blood Cell % 0 /100 WBC (0); Platelet Count 173 Thou/mm3 (140-440); RDW Standard Deviation 52.5 fL (35.1-43.9); Red Blood Count 4.07 Miln/mm3 (4.50-5.90); White Blood Count 8.2 Thou/mm3 (3.8-10.6)
[2025-05-22 06:46] LABS: Alanine Aminotransferase 32 U/L (10-49); Albumin, Serum 3.3 gm/dL (3.4-4.8); Albumin/Globulin Ratio 1.4 (1.2-2.2); Alkaline Phosphatase 91 U/L (46-116); Anion Gap 13 (7-16); Aspartate Amino Transferase 34 U/L (0-34); BUN/Creatinine Ratio 9 Ratio (12-20); Bilirubin,Total 0.4 mg/dL (0.3-1.2); Blood Urea Nitrogen 9 mg/dL (9-23); Calcium 8.6 mg/dL (8.3-10.6); Calcium (Corrected) 9.2 mg/dL (8.5-10.1); Carbon Dioxide 24.1 mMol/L (20.0-31.0); Chloride 104 mMol/L (98-107); Creatinine (Component) 1.0 mg/dL (0.6-1.3); Estimated Creatinine Clearance 59.4 mL/min (>60); Globulin 2.4 gm/dL (2.3-3.5); Glucose 75 mg/dL (74-106); Magnesium 1.9 mg/dL (1.6-2.6); Osmolality,Calculated 278 (275-295); Phosphorous 3.0 mg/dL (2.4-5.1); Potassium 3.7 mMol/L (3.4-5.1); Sodium 141 mMol/L (136-145); Total Protein 5.7 gm/dL (5.7-8.2); eGFR > 60 See Note
--- NOTE | 2025-05-22 07:51 | ESPR_ITS ---
<Statement entered by Kathie Gonzalez MD - 05/22/25 18:15> Patient is seen at bedside. Although heart rate is between 50 and 60s earlier nurse reported patient had episodes of bradycardia with heart rate dropping to 30s while awake. EKG is ordered for closer monitoring. Patient continues to undergo GoLytely prep for pending colonoscopy. On admission patient had a mild SOURAV which has now resolved back to baseline. Patient was seen and examined by me personally. I have directly supervised and reviewed documentation by the team resident and agree with its findings. ------- Plan of care was discussed with the attending, Dr. Sascha Gonzalez, PGY-2 Documentation for date of: 05/22/25 Subjective Subjective Interval history: NAEO. Patient resting comfortably in bed with OG in place. Per nurse report, fecal matter clear, ready for colonoscopy today. Exam Vital Signs Temp Pulse Resp BP Pulse Ox O2 Del Method 97.4 F 76 20 105/62 98 Room Air 05/22/25 04:00 05/22/25 06:20 05/22/25 06:20 05/22/25 04:00 05/22/25 06:20 05/22/25 04:00 Narrative Exam General: No acute distress, well nourished Eye: PERRL, EOMI, normal conjunctiva, no scleral icterus HENT: Normocephalic, atraumatic, normal hearing, moist oral mucosa, adentulous, OG tube in place Neck: Supple, non-tender, no JVD, no lymphadenopathy Lungs: Non-labored respirations, symmetric chest rise, no use of accessory muscles. Breath sounds vesicular without crackles, wheezing or rhonchi Heart: Normal S1 and S2, no S3 or S4 appreciated. Normal rate and regular rhythm, no murmurs, rubs gallops, or edema. Peripheral pulses intact bilaterally, capillary refill brisk distally Abdomen: Soft, non-distended, nontneder, normal bowel sounds. Musculoskeletal: Normal range of motion and strength, no tenderness or swelling Skin: Skin is warm, dry, no rashes or lesions. Neurologic: Nonverbal, unable to follow commands Objective Labs 05/23/25 05:36 05/23/25 05:36 Labs: Laboratory Results - last 24 hr 05/22/25 05:02 WBC 8.2 D RBC 4.07 L Hgb 11.9 L Hct 36.3 L MCV 89 MCH 29.2 MCHC 32.8 RDW Std Deviation 52.5 H Plt Count 173 Neut % (Auto) 75 Lymph % (Auto) 14 [place] % (Auto) 7 Eos % (Auto) 3 Baso % (Auto) 1 Neut # (Auto) 6.2 Lymph # (Auto) 1.1 [place] # (Auto) 0.6 Eos # (Auto) 0.2 Baso # (Auto) 0.1 Immature Gran # (Auto) 0.04 H Absolute Nucleated RBC 0.00 Immature Gran % 1 H Nucleated RBC % 0 Sodium 141 Potassium 3.7 Chloride 104 Carbon Dioxide 24.1 Anion Gap 13 BUN 9 Creatinine 1.0 Estim Creat Clear Calc 59.4 L eGFR > 60 BUN/Creatinine Ratio 9 L Glucose 75 Calculated Osmolality 278 Calcium 8.6 Corrected Calcium 9.2 Phosphorus 3.0 Magnesium 1.9 Total Bilirubin 0.4 AST 34 ALT 32 Alkaline Phosphatase 91 Total Protein 5.7 Albumin 3.3 L Globulin 2.4 Albumin/Globulin Ratio 1.4 Quality Measures Quality Measures VTE prophylaxis Assessment & Plan Assessment Current Active Medications: Generic Name Dose Route Start Last Admin Trade Name Freq PRN Reason Stop Dose Admin Acetaminophen 650 mg 05/20/25 13:26 Acetaminophen 325 Mg Tablet PO 06/19/25 13:25 Q6H PRN Fever >100.3 Acetaminophen 650 mg 05/20/25 13:26 Acetaminophen 325 Mg Tablet PO 06/19/25 13:25 Q6H PRN PAIN SCALE 1-3 (mild Albuterol/Ipratropium 3 ml 05/20/25 19:00 05/22/25 06:19 Albuterol/Ipratropium (Duoneb) Rt Lisha 3 Ml Nebu INH 06/19/25 18:59 3 ml Q6HRRT BORIS Administration Allopurinol 300 mg 05/21/25 09:00 05/21/25 09:09 Allopurinol 100 Mg Tablet PO 06/20/25 08:59 Not Given QDAY BORIS Docusate Sodium 100 mg 05/20/25 21:00 05/21/25 21:37 Docusate Sod 100 Mg Capsule PO 06/19/25 20:59 Not Given BID BORIS Protocol Ceftriaxone Sodium/Dextrose 1 gm in 50 mls @ 100 mls/hr 05/20/25 17:00 05/21/25 16:58 Rocephin/D5w 1gm Iv Premix IV 05/27/25 16:59 100 mls/hr QDAY@1700 BORIS Administration Levetiracetam 500 mg 05/20/25 21:00 05/21/25 21:34 Levetiracetam Inj 100 Mg/Ml Vial 5ml IVP 06/19/25 20:59 500 mg Q12HR BORIS Administration Levothyroxine Sodium 100 mcg/ 150 mcg 05/21/25 06:00 05/22/25 06:10 Levothyroxine Sodium 50 mcg PO 06/20/25 05:59 150 mcg ACBR BORIS Administration Loratadine 10 mg 05/21/25 09:00 05/21/25 09:09 Loratadine 10 Mg Tablet PO 06/20/25 08:59 Not Given QDAY BORIS Meloxicam 7.5 mg 05/20/25 21:00 05/21/25 21:37 Meloxicam 7.5 Mg Tablet PO 06/19/25 20:59 7.5 mg HS BORIS Administration Mirtazapine 7.5 mg 05/20/25 21:00 05/21/25 21:34 Mirtazapine 15 Mg Tablet PO 06/19/25 20:59 7.5 mg HS BORIS Administration Ondansetron HCl 4 mg 05/20/25 08:46 Ondansetron Inj 2 Mg/Ml Inj 2 Ml IVP Q1H PRN PERSISTENT NAUSEA OR VOMITING Pantoprazole Sodium 40 mg 05/21/25 09:00 05/21/25 09:02 Pantoprazole Inj 40 Mg Vial IVP 06/20/25 08:59 40 mg QDAY BORIS Administration Plan Mr. Omer is a 64 y/o male with PMH Down syndrome, nonverbal, seizures, hypothyroidism who presented to the ED on 05/20 with 2 episodes of hematochezia. Admitted for GI bleed. #GI bleed, lower 2 episodes of large volume hematochezia, 1 episode nonbloody nonbilious emesis. No previous colonoscopy. Not on blood thinners. Plan: - Consulted GI, appreciate recs - plan for colonoscopy, getting GoLytely through OG tube - Pantoprazole 40 mg IV daily #Community acquired pneumonia #Leukocytosis - resolved Recently treated with azithromycin x3 days for CAP. Multiple residents in senior living with similar sx. Leukocytosis WBC 18.5 on admit --> resolved CXR: mild opacities b/l lung opacities Bcx: NGTD at 24 hours. Negative MRSA screen. Sputum cx pending. Cocci IgM negative. Plan: - Ceftriaxone 1 g IV daily (05/20 -) - Continuous pulse ox with supplemental O2 PRN - Duoneb q6h - Chest physiotherapy daily - Loratadine 10 mg PO daily (home med) - Pending cocci IgG #SOURAV - resolved On admit BUN 27, CR 1.6 (baseline ~0.9) Most likely prerenal given hematochezia episodes, emesis Received 1L LR in ED, now on clears Plan: - CTM with daily CMP #Transaminitis - resolved On admit AST 87, ALT 87, alk phos 118 Plan: - CTM wtih daily CMP #Right inguinal hernia with bowel, not incarcerated #Left inguinal hernia with bladder Seen on CT a/p Plan: - F/U outpatient given no incarceration #Hx seizures Plan: - Keppra 500 mg IV BID (home med) #Hypothyroidism Plan: - Levothyroxine 150 mcg PO daily (home med) #Gout Plan: - Allopurinol 300 mg PO daily (home med) Checklist Dispo: Pending colonoscopy Lines: PIV Diet: Clears Bowel Reg: docusate 100 mg PO daily VTE ppx: SCDs GI ppx: n/a Pain mgmt: Meloxicam 7.5 mg QHS (home med), Tylenol PRN Code status: full Plan discussed with Dr. Romain Gonzalez and Dr. Nick Fatima MD PGY1 Attending Provider Attestation/Addendum Gallo, Genie Caicedo DO, attest that I was physically present for the beltran portions of the service and evaluated the patient with the resident and I reviewed and discussed the case with the resident and agree with the resident's findings and plans of care as documented above Patient seen and evaluated this AM. Pt is resting comfortably. Counsellor and cable engineer are at bedside. Patient remains on colon prep. Pending colonoscopy this evening.
[2025-05-22] MEDS: levETIRAcetam INJ 100 MG/ML VIAL 5ML 500 MG IVP ×2 (08:44→20:44)
--- NOTE | 2025-05-22 09:38 | PCS.ST ---
Hold swallowing evaluation with caregiver education until tomorrow after colonoscopy.
--- NOTE | 2025-05-22 09:48 | EKG_ITS ---
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
[2025-05-22 10:59] LABS: Cocci Serology, IgG Negative (Negative)
[2025-05-22] MEDS: MELOXICAM 7.5 MG TABLET PO (20:43)
[2025-05-22] MEDS: MIRTAZAPINE 15 MG TABLET 7.5 MG PO (20:44)
[2025-05-22] MEDS: DOCUSATE SOD 100 MG CAPSULE PO (20:44)
[2025-05-23] VITALS (12 sets, daily range): BP systolic 120–154; BP diastolic 71–94; PULSE 45–74; RESP 15–93; TEMP 36.2–36.6; O2SAT 92–100; BMI 29.9
[2025-05-23] MEDS: ALBUTEROL/IPRATROPIUM (Duoneb) RT SOL 3 ML NEBU INH ×4 (01:11→19:27)
[2025-05-23 06:28] LABS: Basophils # (Auto) 0.1 Thou/mm3 (0.0-0.2); Basophils % (Auto) 1 % (0-2.5); Eosinophils # (Auto) 0.3 Thou/mm3 (0.0-0.5); Eosinophils % (Auto) 6 % (0-10); Hematocrit 36.4 % (41.0-53.0); Hemoglobin 12.1 g/dL (13.5-16.0); Immature Granulocytes Auto 0.04 Thou/mm3 (0.00-0.00); Lymphocytes # (Auto) 0.9 Thou/mm3 (1.0-4.8); Lymphocytes % (Auto) 17 % (10-50); Mean Corpuscular HGB Conc 33.2 g/dl (31.0-37.0); Mean Corpuscular Hemoglobin 30.0 pg (25.0-35.0); Mean Corpuscular Volume 90 fL (80-100); Monocytes # (Auto) 0.5 Thou/mm3 (0.0-0.8); Monocytes % (Auto) 9 % (0-12); Neutrophils # (Auto) 3.7 Thou/mm3 (1.8-7.7); Neutrophils % (Auto) 68 % (37-80); Nucleated Red Blood Cell # 0.00 Thou/mm3 (0.00-0.00); Nucleated Red Blood Cell % 0 /100 WBC (0); Platelet Count 186 Thou/mm3 (140-440); RDW Standard Deviation 51.9 fL (35.1-43.9); Red Blood Count 4.04 Miln/mm3 (4.50-5.90); White Blood Count 5.5 Thou/mm3 (3.8-10.6)
[2025-05-23 06:51] LABS: Alanine Aminotransferase 22 U/L (10-49); Albumin, Serum 3.3 gm/dL (3.4-4.8); Albumin/Globulin Ratio 1.4 (1.2-2.2); Alkaline Phosphatase 87 U/L (46-116); Anion Gap 10 (7-16); Aspartate Amino Transferase 21 U/L (0-34); BUN/Creatinine Ratio 8 Ratio (12-20); Bilirubin,Total 0.4 mg/dL (0.3-1.2); Blood Urea Nitrogen 7 mg/dL (9-23); Calcium 8.6 mg/dL (8.3-10.6); Calcium (Corrected) 9.2 mg/dL (8.5-10.1); Carbon Dioxide 25.6 mMol/L (20.0-31.0); Chloride 106 mMol/L (98-107); Creatinine (Component) 0.9 mg/dL (0.6-1.3); Estimated Creatinine Clearance 66.0 mL/min (>60); Globulin 2.4 gm/dL (2.3-3.5); Glucose 75 mg/dL (74-106); Magnesium 1.8 mg/dL (1.6-2.6); Osmolality,Calculated 280 (275-295); Phosphorous 3.1 mg/dL (2.4-5.1); Potassium 3.4 mMol/L (3.4-5.1); Sodium 142 mMol/L (136-145); Total Protein 5.7 gm/dL (5.7-8.2); eGFR > 60 See Note
[2025-05-23] MEDS: DOCUSATE SOD 100 MG CAPSULE PO ×2 (08:21→20:21)
[2025-05-23] MEDS: levETIRAcetam INJ 100 MG/ML VIAL 5ML 500 MG IVP ×2 (08:21→20:23)
--- NOTE | 2025-05-23 09:27 | ECHO_ITS ---
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 Ordering Physician: Genie Caicedo Study Info Indications acute ischemic collitis - Primary Location: S3NX Left Ventricular Outflow Tract Name Value Normal LVOT 2D LVOT Diameter 1.8 cm LVOT Doppler LVOT Peak Velocity 128 cm/s LVOT Mean Gradient 4 mmHg LVOT VTI 30 cm LVOT Stroke Volume 76 ml Pulmonic Valve Name Value Normal PV Doppler PV Peak Velocity 98 cm/s PV Regurgitation Doppler OR Peak End Diastolic Velocity 117 cm/s Mitral Valve Name Value Normal MV Doppler MV Decel Comal 304 cm/s2 MV PHT 99 ms MV Area (PHT) 2.2 cm2 4.0-5.0 MV Diastolic Function MV E Peak Velocity 104 cm/s MV A Peak Velocity 117 cm/s MV E/A 0.9 MV Annular TDI MV Septal e' Velocity 6.0 cm/s MV E/e' (Septal) 17.4 MV Lateral e' Velocity 11.5 cm/s MV E/e' (Lateral) 9.0 MV e' Average 8.74 cm/s MV E/e' (Average) 13.2 Tricuspid Valve Name Value Normal TV Regurgitation Doppler TR Peak Velocity 278 cm/s Estimated PAP/RSVP RA Pressure 3 mmHg <=5 PA Systolic Pressure 34 mmHg <36 RV Systolic Pressure 34 mmHg <36 Aortic Valve Name Value Normal AV 2D/MM AV Cusp Sep (MM) 1.5 cm AV Regurgitation 2D LVOT Area 2.5 cm2 Ventricles Name Value Normal LV Dimensions 2D/MM IVS Diastolic Thickness (2D) 1.0 cm 0.6-1.0 LVID Diastole (2D) 3.9 cm 4.2-5.8 LVIW Diastolic Thickness (2D) 1.0 cm 0.6-1.0 LVID Systole (2D) 2.4 cm 2.5-4.0 LVOT Diameter 1.8 cm LV Mass (2D Cubed) 122.12 g 88.00-224.00 LV Mass Index (2D Cubed) 71 g/m2 49-115 Relative Wall Thickness (2D) 0.51 <=0.42 IVS/LVIW Diastolic Thickness (2D) 1.00 0.00-1.50 LV Fractional Shortening/Ejection Fraction 2D/MM LV Fractional Shortening (2D) 38 % 25-43 LV EF (2D Teichholz) 69 % Atria Name Value Normal LA Dimensions LA Volume (4C A-L) 67 ml LA Volume (BP A-L) 52 ml Left Ventricle Left ventricular chamber dimension is normal. Left ventricular systolic function is normal with visually estimated ejection fraction of 60-65%. There is concentric remodeling noted in the left ventricle. Left ventricular segmental wall motion is normal. There is grade I diastolic dysfunction in the left ventricle. Right Ventricle Right ventricular chamber dimension is normal. Right ventricular systolic function is normal. Left Atrium Left atrial chamber dimension is mildly enlarged. Right Atrium Right atrial chamber dimension is normal. Aortic Valve The aortic valve is trileaflet. There is mild aortic valve sclerosis. There is no aortic valve stenosis. There is no aortic valve regurgitation. Pulmonic Valve The pulmonic valve is normal. There is no pulmonic valve stenosis. There is trace pulmonic regurgitation. Mitral Valve The mitral valve has thickened leaflets. There is no mitral valve stenosis. There is mild mitral valve regurgitation. Tricuspid Valve The tricuspid valve leaflets are normal. There is no tricuspid valve stenosis. There is mild tricuspid valve regurgitation. No pulmonary hypertension, estimated pulmonary arterial systolic pressure is 34 mmHg and systemic blood pressure of 128 mmHg in systole. Pericardium/Pleural The pericardium appears normal. There is trivial pericardial effusion with no tamponade. There is trivial pericardial effusion. No pleural effusion visualized. Inferior Vena Cava Normal inferior vena cava with >50% collapse upon inspiration consistent with normal right atrial pressure, 3 mmHg. Aorta The aortic measurements are indexed to age and body surface area. The aortic root at the sinus of Valsalva is not well visualized. The prox ascending aorta is not well visualized. Summary 1. Left ventricle size is normal and systolic function is normal. Estimated ejection fraction is 60-65%. There is grade I diastolic dysfunction. 2. Right ventricle chamber size is normal and systolic function is normal. Estimated RVSP is 34 mmHg. Mild HTN. 3. There is mild tricuspid valve regurgitation. 4. There is mild mitral valve regurgitation. Mild MAC. The mitral valve has thickened leaflets. 5. There is mild aortic valve sclerosis with no stenosis and no regurgitation. 6. The left atrium is mildly enlarged. 7. Normal IVC with estimated RA pressure 3 mmHg. Prior Cardiovascular Procedures Transthoracic Echocardiogram: Yes Date of Previous TTE: 02/2024 Report Signatures Finalized by Crys June on 05/26/2025 01:10 AM
--- NOTE | 2025-05-23 09:29 | XR_ITS ---
Examination: Carotid arterial duplex scan, ultrasound. Date and time of exam: May 23, 2025, 1056 hours INDICATIONS: Diagnosis acute ischemia, transient ischemic attacks Technique: Multiple sonographic images have been obtained of the carotid arteries and vertebral arteries, B-mode/grayscale imaging and Doppler spectral analysis and color flow Peak systolic and diastolic velocities have been recorded. Systolic diastolic ratios have been calculated. Findings: Right peak systolic velocities: Distal internal carotid artery peak systolic velocity not visualized Proximal internal carotid artery peak systolic velocity is 0.4 M/sec Carotid bifurcation peak systolic velocity is 1.7 M/sec External carotid artery peak systolic velocity is 1.6 M/sec Vertebral artery flow is antegrade. Left peak systolic velocities: Distal internal carotid artery peak systolic velocity is 0.5 M/sec Proximal internal carotid artery peak systolic velocity is 0.5 M/sec Carotid bifurcation peak systolic velocity is 0.7 M/sec External carotid artery peak systolic velocity is 0.5 M/sec Vertebral artery flow is antegrade Doppler waveform analysis demonstrates no spectral broadening Impression: Limited visualization right carotid artery Left internal carotid artery demonstrates 0 to 10% stenosis.
--- NOTE | 2025-05-23 09:30 | XR_ITS ---
Examination: Arterial duplex lower extremity study. Date and time of exam: 05/23/2025, 11:17 a.m. Findings: Duplex sonographic imaging of the lower extremity arteries using B-mode/Dowling scale imaging and Doppler spectral analysis and color flow. Ankle brachial indices have been recorded. Echogenic plaque is scattered throughout the bilateral lower extremity arteries. No evidence for occlusion of the interrogated bilateral lower extremity arteries. No evidence for concerning velocity elevation in either lower extremity. Right common femoral artery demonstrates triphasic flow. Right superficial femoral artery demonstrates triphasic flow. Right popliteal artery demonstrates triphasic flow. Right posterior tibial artery demonstrates triphasic flow. Right dorsalis pedis artery demonstrates biphasic flow, with velocity measuring 29 cm/s. Right ankle/brachial index is 1.0. Left common femoral artery demonstrates triphasic flow. Left superficial femoral artery demonstrates triphasic flow. Left popliteal artery demonstrates triphasic flow. Left posterior tibial artery demonstrates biphasic flow. Left dorsalis pedis artery demonstrates monophasic flow with velocity measuring 16 cm/s. Left ankle/brachial index is 1.4. Impression: Scattered plaque throughout the bilateral lower extremity arteries. Monophasic waveforms and slow velocity in the left dorsalis pedis artery suggest at least 50% inflow disease. Otherwise, no evidence for hemodynamically significant stenosis or occlusion in the remaining interrogated bilateral lower extremity arteries. Right NANCY: 1.0. Left NANCY: 1.4.
--- NOTE | 2025-05-23 09:30 | XR_ITS ---
CLINICAL HISTORY: acute ischemic colitis. COMPARISON: none TECHNIQUE: CT angiography of abdomen and pelvis with and without contrast. Pre-contrast images were taken through the abdomen and pelvis. After the intravenous administration of non-ionic contrast material, images were taken through the abdomen and pelvis. Data were transferred to the 3D lab where multiplanar reformatted and 3D images were generated. FINDINGS: CT ANGIOGRAM: Image quality is partially degraded by patient motion. Abdominal aorta: Well-opacified. No aneurysm, dissection, significant plaque, stenosis or occlusion. Celiac axis: Widely patent and well-opacified.. SMA : Unremarkable. PB : Unremarkable. Right renal artery: 1 main renal artery and 2 accessory renal arteries which are all normal in caliber and well-opacified without evidence for fibromuscular dysplasia, dissection or occlusion. Left renal artery: 1 main renal artery and 2 accessory renal arteries which are all normal in caliber and well-opacified without evidence for fibromuscular dysplasia, dissection or occlusion. Left renal artery: Unremarkable. Right common iliac artery: Unremarkable. Right external iliac artery: Unremarkable. Right internal iliac iliac artery: Unremarkable. Left common iliac artery: Unremarkable. Left external iliac artery: Unremarkable. Left internal iliac iliac artery: Unremarkable. Other Vessels: The veins and not adequately assessed on the arterial phase. OTHER FINDINGS: Lower chest: Moderate elevation/eventration of the right hemidiaphragm. Very small left-sided and minimal right-sided pleural effusions. Multifocal bilateral subsegmental atelectasis and suspected diffuse pulmonary edema pattern.. Top normal heart size with biatrial dilatation. The right ventricle is mildly larger than the left ventricle. Small pericardial effusion noted. Liver and biliary system: No hepatomegaly or arterially enhancing liver mass. No calcified gallstones or findings concerning for acute cholecystitis or biliary ductal obstruction. Spleen: No splenomegaly. The spleen is heterogeneous due to the phase of enhancement. A small hyperenhancing lesion at the inferolateral aspect of the spleen most likely represents a hemangioma. Pancreas: Mild generalized pancreatic lipomatosis. No apparent infiltrative mass. No main pancreatic duct dilatation. No acute inflammatory changes. Adrenal glands: No significant findings. Kidneys: No solid mass. No calculi or hydronephrosis. Bladder: The urinary bladder is well distended but demonstrates mild diffuse mural thickening. No focal mass or calculi otherwise. Pelvic organs: The prostate is unremarkable. Scrotal wall edema noted, greater on the left side. Lymph nodes/retroperitoneum: No pathologically enlarged lymph nodes or other masses. No hematoma or other abnormal collections. Bowel/Peritoneal cavity: No contour deforming mass. No evidence for active contrast extravasation. There is abnormal mural thickening of the portions of the descending colon, most evident proximally, and focal mural thickening also noted in the distal transverse colon. Mild regional fat stranding noted. The findings are compatible with colitis. No evidence for perforation. Fluid is visualized throughout the colon. There is no evidence for acute appendicitis, enteritis or bowel obstruction. No abscess formation. No ascites or free air.. Abdominal/Pelvic wall: Bilateral predominantly fat-containing inguinal hernias, right side greater than left, without acute complication. Distal ileum mildly encroaches into the uppermost portion of the right inguinal hernia. Heterogeneous soft tissue thickening involves the bilateral gluteal regions extending from ischial tuberosities toward the skin surface with overlying skin thickening but no large ulceration, well-defined drainable fluid collection or osteomyelitis. Findings likely represent chronic decubitus changes. Musculoskeletal: Multifocal degenerative changes with otherwise no evidence for recent fracture or aggressive lesion. Mild lumbar dextroscoliosis. IMPRESSION: Left-sided colitis of indeterminate etiology but otherwise no evidence for colon perforation or bowel obstruction. No evidence for significant arterial stenosis, occlusion or active contrast extravasation. Bilateral pulmonary edema, bilateral atelectasis, small left-sided pleural effusion and minimal right-sided pleural effusion. Heterogeneous soft tissue thickening involves the bilateral gluteal regions extending from ischial tuberosities toward the skin surface with overlying skin thickening but no large ulceration, well-defined drainable fluid collection or osteomyelitis. Findings likely represent chronic decubitus changes. - This report was created utilizing voice recognition software. -
[2025-05-23 10:03] LABS: Cardiac Risk Estimate 3.4 RATIO (4.0-6.7); Cholesterol 124 mg/dL (132-200); HDL Cholesterol 36 mg/dL (40-60); LDL Cholesterol,Calculated 73 mg/dL (0-130); Triglycerides 77 mg/dL (30-150)
--- NOTE | 2025-05-23 14:09 | PD.HHPROG ---
Documentation for date of: 05/23/25 Subjective - Hospitalist Subjective Interval history: Patient seen and evaluated this AM. No acute events overnight. Caretakers at bedside. Patient was found to have internal hemorrhoids and mucosal ulceration in the sigmoid colon and in the proximal descending colon, consistent with acute severe ischemic colitis on colonoscopy. Results were discussed with the patient?s caretakers. They state that the patient does moan and groan at times. However, he appears much improved at this time and has been talking, which he has not done in a while. Patient was seen by ST this AM and has been advanced to low fiber diet. Review of Systems Review of Systems ROS Unobtainable: unobtainable due to mental status Exam Vital Signs Temp Pulse Resp BP Pulse Ox O2 Del Method O2 Flow Rate 97.4 F 60 18 128/74 98 Room Air 2 05/23/25 07:55 05/23/25 13:49 05/23/25 12:57 05/23/25 07:55 05/23/25 12:57 05/23/25 07:55 05/22/25 18:50 Narrative Gen: No acute distress HEENT: NCAT, PERRLOU, Sclera anicteric, conjunctiva noninjected, oral mucosa moist without erythema Neck: Supple, full range of motion, no LAD CV: RRR, no murmurs, rubs or gallops Resp: CTAB/L, no wheezing, rhonchi or rales GI: abdomen soft, bowel sounds noted, no tenderness to palpation, no guarding or rebound tenderness, no organomegaly Skin: clean, dry, no rashes, lesions or ecchymosis Ext: no clubbing, cyanosis, or edema Neuro: Alert, CN II- XII intact b/l, no focal neurological deficits Objective - Hospitalist Labs Diagram: 05/23/25 05:36 05/23/25 05:36 Labs: Laboratory Results - last 24 hr 05/23/25 05:36 WBC 5.5 RBC 4.04 L Hgb 12.1 L Hct 36.4 L MCV 90 MCH 30.0 MCHC 33.2 RDW Std Deviation 51.9 H Plt Count 186 Neut % (Auto) 68 Lymph % (Auto) 17 [place] % (Auto) 9 Eos % (Auto) 6 Baso % (Auto) 1 Neut # (Auto) 3.7 Lymph # (Auto) 0.9 L [place] # (Auto) 0.5 Eos # (Auto) 0.3 Baso # (Auto) 0.1 Immature Gran # (Auto) 0.04 H Absolute Nucleated RBC 0.00 Immature Gran % 1 H Nucleated RBC % 0 Sodium 142 Potassium 3.4 Chloride 106 Carbon Dioxide 25.6 Anion Gap 10 BUN 7 L Creatinine 0.9 Estim Creat Clear Calc 66.0 eGFR > 60 BUN/Creatinine Ratio 8 L Glucose 75 Calculated Osmolality 280 Calcium 8.6 Corrected Calcium 9.2 Phosphorus 3.1 Magnesium 1.8 Total Bilirubin 0.4 AST 21 ALT 22 Alkaline Phosphatase 87 Total Protein 5.7 Albumin 3.3 L Globulin 2.4 Albumin/Globulin Ratio 1.4 Triglycerides 77 Cholesterol 124 L LDL Cholesterol, Calc 73 HDL Cholesterol 36 L Cholesterol/HDL Ratio 3.4 L Assessment & Plan Patient Synopsis Acute severe ischemic colitis Hematochezi Acute hypoxic respiratory failure Community-acquired pneumonia SOURAV, resolved Transaminitis, Resolved Right inguinal hernia, stable History of seizures Hypothyroidism Gout 64-year-old male with past medical history of Down syndrome, seizures and hypothyroidism who was admitted for hematochezia.Colonoscopy was done on 05/22/2025. Patient was found to have internal hemorrhoids as well as mucosal ulceration in the sigmoid colon and in the proximal descending colon, consistent with acute to be ischemic colitis. Patient has not been advanced to low fiber diet. Case was discussed with GI this morning, recommends further workup for possible ischemia. Due to patient condition, will be difficult to do further workup outpatient. Will order echocardiogram, ultrasound of the carotids, arterial duplex of bilateral lower extremities and lipid panel. Will start patient on aspirin 81 mg p.o. daily. Will also order CTA of abdomen pelvis to rule out any emboli as cause of acute ischemic colitis. Patient remains on Rocephin at this time due to concern for community-acquired pneumonia. Patient is currently on room air at this time. Anticipate discharge within next 24 hours if rest of workup is done and patient remains stable. Patient's pace analyst is aware that he will need to follow-up with her surgery if left inguinal hernia is worse and patient exhibits signs of discomfort, pain or firmness in the inguinal region that may be consistent with incarceration of inguinal hernia. Nutrition: low fiber diet DVT Prophylaxis: scd Code Status: full code disposition: anticipate DC within next 24h Time Spent with Patient Time: Total time spent is greater than 50% in coordination of care (as documented) at patient's floor/unit and/or counseling patient: 25min Time with patient: 25 - 35 minutes Reason for Continued Stay Reason for continued stay: further dx testing Quality Measures Quality Measures VTE prophylaxis
--- NOTE | 2025-05-23 15:40 | PC.SS ---
Addendum entered by Digna Feliciano 05/23/25 16:01: SS received phone call from [facility] sr. vendor management associate, Krystal. Krystal states patient resides with them at [facility]. Patient has 24 hour care. Patient is ambulatory. He only uses a wheelchair for long distances. Patient has dx: Down Syndrome and seizure disorder. Patient does not have any family. [facility] is connected with patient and makes all healthcare decisions. Dr. Khan. Patient has a case technician, Esha Hansen. Krystal states patient verbalizes some words but since he's been here he has not. Patient PCP: Kimberly Santana NP. Pharmacy: [facility]. Patient will return to [facility] upon discharge. [facility] will transport home. Decison maker: Dr. Khan @ [facility] Original Note: SS left mssg at [facility]. SS reviewed historical notes and patient is a resident of [facility]. No family involved. [facility] makes all medical decisions w/Dr. Khan. SS left [facility] with [facility] for further history of patient. SS will follow up with [facility].
[2025-05-23] MEDS: FUROSEMIDE INJ 10 MG/ML 4ML VIAL 40 MG IVP (15:47)
[2025-05-23] MEDS: cefTRIAXone/D5w 1gm IV premix 1 GM/50 ML BAG IV (17:02)
--- NOTE | 2025-05-23 20:11 | PD.IMPROG ---
Documentation for date of: 05/23/25 Subjective Subjective Interval history: Patient evaluated case discussed with the attending physician Inpatient workup discussed for ischemic colitis Exam Vital Signs Temp Pulse Resp BP Pulse Ox O2 Del Method O2 Flow Rate 97.6 F 45 L 16 126/73 98 Room Air 2 05/23/25 16:00 05/23/25 19:27 05/23/25 19:27 05/23/25 16:00 05/23/25 19:27 05/23/25 16:00 05/22/25 18:50 Objective Labs 05/23/25 05:36 05/23/25 05:36 Labs: Laboratory Results - last 24 hr 05/23/25 05:36 WBC 5.5 RBC 4.04 L Hgb 12.1 L Hct 36.4 L MCV 90 MCH 30.0 MCHC 33.2 RDW Std Deviation 51.9 H Plt Count 186 Neut % (Auto) 68 Lymph % (Auto) 17 [place] % (Auto) 9 Eos % (Auto) 6 Baso % (Auto) 1 Neut # (Auto) 3.7 Lymph # (Auto) 0.9 L [place] # (Auto) 0.5 Eos # (Auto) 0.3 Baso # (Auto) 0.1 Immature Gran # (Auto) 0.04 H Absolute Nucleated RBC 0.00 Immature Gran % 1 H Nucleated RBC % 0 Sodium 142 Potassium 3.4 Chloride 106 Carbon Dioxide 25.6 Anion Gap 10 BUN 7 L Creatinine 0.9 Estim Creat Clear Calc 66.0 eGFR > 60 BUN/Creatinine Ratio 8 L Glucose 75 Calculated Osmolality 280 Calcium 8.6 Corrected Calcium 9.2 Phosphorus 3.1 Magnesium 1.8 Total Bilirubin 0.4 AST 21 ALT 22 Alkaline Phosphatase 87 Total Protein 5.7 Albumin 3.3 L Globulin 2.4 Albumin/Globulin Ratio 1.4 Triglycerides 77 Cholesterol 124 L LDL Cholesterol, Calc 73 HDL Cholesterol 36 L Cholesterol/HDL Ratio 3.4 L Impressions Impression: Ischemic colitis Workup in progress Assessment & Plan A&P Narrative # Hematochezia etiology uncertain Differential diagnoses include diverticular source of bleeding versus ischemic colitis versus internal hemorrhoids Plan clear liquid diet GoLytely 4 L p.o. and if patient is not clean give the second gallon If patient does not drink 12 Trin[place] NGT and give GoLytely at 400 cc an hour Serial CBC Will follow the patient Check the results of the CT scan of the abdomen pelvis which are still pending Will follow the patient Other medical problems include Down syndrome Nonverbal Grand mal seizure disorder Hypothyroidism Thank you very much for the opportunity to participate in care of this patient Time Spent With Patient Time: Total time spent is greater than 50% in coordination of care (as documented) at patient's floor/unit and/or counseling patient:
[2025-05-23] MEDS: MIRTAZAPINE 15 MG TABLET 7.5 MG PO (20:21)
[2025-05-24] VITALS (9 sets, daily range): BP systolic 99–127; BP diastolic 52–84; PULSE 52–84; RESP 18–91; TEMP 36.2–36.3; O2SAT 90–97
[2025-05-24] MEDS: ALBUTEROL/IPRATROPIUM (Duoneb) RT SOL 3 ML NEBU INH ×3 (01:20→13:12)
[2025-05-24 06:22] LABS: Basophils # (Auto) 0.1 Thou/mm3 (0.0-0.2); Basophils % (Auto) 1 % (0-2.5); Eosinophils # (Auto) 0.4 Thou/mm3 (0.0-0.5); Eosinophils % (Auto) 6 % (0-10); Hematocrit 38.6 % (41.0-53.0); Hemoglobin 13.1 g/dL (13.5-16.0); Immature Granulocytes Auto 0.12 Thou/mm3 (0.00-0.00); Lymphocytes # (Auto) 0.9 Thou/mm3 (1.0-4.8); Lymphocytes % (Auto) 15 % (10-50); Mean Corpuscular HGB Conc 33.9 g/dl (31.0-37.0); Mean Corpuscular Hemoglobin 30.3 pg (25.0-35.0); Mean Corpuscular Volume 89 fL (80-100); Monocytes # (Auto) 0.6 Thou/mm3 (0.0-0.8); Monocytes % (Auto) 9 % (0-12); Neutrophils # (Auto) 4.1 Thou/mm3 (1.8-7.7); Neutrophils % (Auto) 67 % (37-80); Nucleated Red Blood Cell # 0.00 Thou/mm3 (0.00-0.00); Nucleated Red Blood Cell % 0 /100 WBC (0); Platelet Count 213 Thou/mm3 (140-440); RDW Standard Deviation 52.3 fL (35.1-43.9); Red Blood Count 4.33 Miln/mm3 (4.50-5.90); White Blood Count 6.1 Thou/mm3 (3.8-10.6)
[2025-05-24 06:53] LABS: Alanine Aminotransferase 21 U/L (10-49); Albumin, Serum 3.6 gm/dL (3.4-4.8); Albumin/Globulin Ratio 1.2 (1.2-2.2); Alkaline Phosphatase 94 U/L (46-116); Anion Gap 11 (7-16); Aspartate Amino Transferase 17 U/L (0-34); BUN/Creatinine Ratio 6 Ratio (12-20); Bilirubin,Total 0.4 mg/dL (0.3-1.2); Blood Urea Nitrogen 6 mg/dL (9-23); Calcium 8.9 mg/dL (8.3-10.6); Calcium (Corrected) 9.2 mg/dL (8.5-10.1); Carbon Dioxide 27.1 mMol/L (20.0-31.0); Chloride 102 mMol/L (98-107); Creatinine (Component) 1.0 mg/dL (0.6-1.3); Estimated Creatinine Clearance 59.4 mL/min (>60); Globulin 3.0 gm/dL (2.3-3.5); Glucose 81 mg/dL (74-106); Magnesium 1.7 mg/dL (1.6-2.6); Osmolality,Calculated 276 (275-295); Phosphorous 3.5 mg/dL (2.4-5.1); Potassium 3.3 mMol/L (3.4-5.1); Sodium 140 mMol/L (136-145); Total Protein 6.6 gm/dL (5.7-8.2); eGFR > 60 See Note
[2025-05-24] MEDS: DOCUSATE SOD 100 MG CAPSULE PO (08:12)
[2025-05-24] MEDS: levETIRAcetam INJ 100 MG/ML VIAL 5ML 500 MG IVP (08:12)
[2025-05-24] MEDS: POTASSIUM CHL 10 mEq IVPB 10 MEQ/100 ML BAG 100 MEQ IV ×3 (08:12→11:36)
[2025-05-24] MEDS: ASPIRIN 81 MG CHEW PO (08:12)
--- NOTE | 2025-05-24 08:52 | PD.RESPRO ---
Documentation for date of: 05/24/25 Subjective Subjective Interval history: NAEO. Patient examined at bedside, being fed breakfast by PLANNING LEAD. Exam Vital Signs Temp Pulse Resp BP Pulse Ox O2 Del Method O2 Flow Rate 97.3 F 75 18 126/84 90 L Room Air 2 05/24/25 07:51 05/24/25 07:51 05/24/25 07:51 05/24/25 07:51 05/24/25 07:51 05/24/25 07:51 05/22/25 18:50 Narrative Exam General: No acute distress, well nourished Eye: PERRL, EOMI, normal conjunctiva, no scleral icterus HENT: Normocephalic, atraumatic, normal hearing, moist oral mucosa, adentulous Neck: Supple, non-tender, no JVD, no lymphadenopathy Lungs: Non-labored respirations, symmetric chest rise, no use of accessory muscles. Breath sounds vesicular without crackles, wheezing or rhonchi Heart: Normal S1 and S2, no S3 or S4 appreciated. Normal rate and regular rhythm, no murmurs, rubs gallops, or edema. Peripheral pulses intact bilaterally, capillary refill brisk distally Abdomen: Soft, non-distended, nontneder, normal bowel sounds. Musculoskeletal: Normal range of motion and strength, no tenderness or swelling Skin: Skin is warm, dry, no rashes or lesions. Neurologic: Nonverbal, unable to follow commands Objective Labs 05/24/25 04:48 05/24/25 04:48 Labs: Laboratory Results - last 24 hr 05/23/25 05/24/25 05:36 04:48 WBC 6.1 RBC 4.33 L Hgb 13.1 L Hct 38.6 L MCV 89 MCH 30.3 MCHC 33.9 RDW Std Deviation 52.3 H Plt Count 213 Neut % (Auto) 67 Lymph % (Auto) 15 [place] % (Auto) 9 Eos % (Auto) 6 Baso % (Auto) 1 Neut # (Auto) 4.1 Lymph # (Auto) 0.9 L [place] # (Auto) 0.6 Eos # (Auto) 0.4 Baso # (Auto) 0.1 Immature Gran # (Auto) 0.12 H Absolute Nucleated RBC 0.00 Immature Gran % 2 H Nucleated RBC % 0 Sodium 140 Potassium 3.3 L Chloride 102 Carbon Dioxide 27.1 Anion Gap 11 BUN 6 L Creatinine 1.0 Estim Creat Clear Calc 59.4 L eGFR > 60 BUN/Creatinine Ratio 6 L Glucose 81 Calculated Osmolality 276 Calcium 8.9 Corrected Calcium 9.2 Phosphorus 3.5 Magnesium 1.7 Total Bilirubin 0.4 AST 17 ALT 21 Alkaline Phosphatase 94 Total Protein 6.6 Albumin 3.6 Globulin 3.0 Albumin/Globulin Ratio 1.2 Triglycerides 77 Cholesterol 124 L LDL Cholesterol, Calc 73 HDL Cholesterol 36 L Cholesterol/HDL Ratio 3.4 L Quality Measures Quality Measures VTE prophylaxis Assessment & Plan Assessment Current Active Medications: Generic Name Dose Route Start Last Admin Trade Name Freq PRN Reason Stop Dose Admin Acetaminophen 650 mg 05/20/25 13:26 Acetaminophen 325 Mg Tablet PO 06/19/25 13:25 Q6H PRN Fever >100.3 Acetaminophen 650 mg 05/20/25 13:26 Acetaminophen 325 Mg Tablet PO 06/19/25 13:25 Q6H PRN PAIN SCALE 1-3 (mild Albuterol/Ipratropium 3 ml 05/20/25 19:00 05/24/25 06:44 Albuterol/Ipratropium (Duoneb) Rt Lisha 3 Ml Nebu INH 06/19/25 18:59 3 ml Q6HRRT BORIS Administration Allopurinol 300 mg 05/21/25 09:00 05/24/25 08:12 Allopurinol 100 Mg Tablet PO 06/20/25 08:59 300 mg QDAY BORIS Administration Aspirin 81 mg 05/24/25 09:00 05/24/25 08:12 Aspirin 81 Mg Chew PO 06/23/25 08:59 81 mg QDAY BORIS Administration Docusate Sodium 100 mg 05/20/25 21:00 05/24/25 08:12 Docusate Sod 100 Mg Capsule PO 06/19/25 20:59 100 mg BID BORIS Administration Protocol Ceftriaxone Sodium/Dextrose 1 gm in 50 mls @ 100 mls/hr 05/20/25 17:00 05/23/25 17:02 Rocephin/D5w 1gm Iv Premix IV 05/27/25 16:59 100 mls/hr QDAY@1700 BORIS Administration Potassium Chloride 10 meq in 100 mls @ 100 mls/hr 05/24/25 07:40 05/24/25 08:12 Kcl Ivpb IV 05/24/25 10:39 100 mls/hr Q1H BORIS Administration Levetiracetam 500 mg 05/20/25 21:00 05/24/25 08:12 Levetiracetam Inj 100 Mg/Ml Vial 5ml IVP 06/19/25 20:59 500 mg Q12HR BORIS Administration Levothyroxine Sodium 100 mcg/ 150 mcg 05/21/25 06:00 05/24/25 05:18 Levothyroxine Sodium 50 mcg PO 06/20/25 05:59 150 mcg ACBR BORIS Administration Loratadine 10 mg 05/21/25 09:00 05/24/25 08:12 Loratadine 10 Mg Tablet PO 06/20/25 08:59 10 mg QDAY BORIS Administration Mirtazapine 7.5 mg 05/20/25 21:00 05/23/25 20:21 Mirtazapine 15 Mg Tablet PO 06/19/25 20:59 7.5 mg HS BORIS Administration Ondansetron HCl 4 mg 05/20/25 08:46 Ondansetron Inj 2 Mg/Ml Inj 2 Ml IVP Q1H PRN PERSISTENT NAUSEA OR VOMITING Pantoprazole Sodium 40 mg 05/21/25 09:00 05/24/25 08:11 Pantoprazole Inj 40 Mg Vial IVP 06/20/25 08:59 40 mg QDAY BORIS Administration Plan Mr. Omer is a 64 y/o male with PMH Down syndrome, nonverbal, seizures, hypothyroidism who presented to the ED on 05/20 with 2 episodes of hematochezia. Admitted for GI bleed. #GI bleed, lower #Internal hemorrhoids, grade 2 #Acute severe ischemic colitis Initial presentation: 2 episodes of large volume hematochezia, 1 episode nonbloody nonbilious emesis. No previous colonoscopy. Not on blood thinners. Lipid panel: tyiglycerides 77, cholesterol 124, LDL 73, HDL 36 (low) Colonoscopy: bleeding ulcerated mucosa in sigmoid and proximal descending colon c/w acute severe ischemic colitis Carotid doppler: Limited visualization R ICA, left ICA 0-10% stenosis CT a/p: left sided colitis of indeterminate etiology, no colon perforation, no bowel obstruction. No arterial stenosis, occlusion, or active contrast extravasation LE Duplex arterial US: scattered plaque throughout b/l LE arteries. At least 50% stenosis at left dorsalis pedis artery. No other evidence of stenosis or occlusion. Right NANCY 1, Left NANCY 1.4 Plan: - Consulted GI, appreciate recs - Pantoprazole 40 mg IV daily - Low fiber diet - Pending echo read - Aspirin 81 mg PO daily #Community acquired pneumonia #Leukocytosis - resolved Recently treated with azithromycin x3 days for CAP. Multiple residents in correction with similar sx. Leukocytosis WBC 18.5 on admit --> resolved CXR: mild opacities b/l lung opacities Bcx: NGTD at 24 hours. Negative MRSA screen. Sputum cx pending. Cocci IgM and IgG negative. Plan: - Ceftriaxone 1 g IV daily (05/20 -) x7 days - Continuous pulse ox with supplemental O2 PRN - Duoneb q6h - Chest physiotherapy daily - Loratadine 10 mg PO daily (home med) #Chronic decubitus changes b/l gluteal region Extending from ischial tuberosities extending toward skin surface w/ overlying skin thickening Plan: - CTM #SOURAV - resolved On admit BUN 27, CR 1.6 (baseline ~0.9) Most likely prerenal given hematochezia episodes, emesis Received 1L LR in ED, now on clears Plan: - CTM with daily CMP #Transaminitis - resolved On admit AST 87, ALT 87, alk phos 118 Plan: - CTM wtih daily CMP #Right inguinal hernia with bowel, not incarcerated #Left inguinal hernia with bladder Seen on CT a/p Plan: - F/U outpatient given no incarceration #Hx seizures Plan: - Keppra 500 mg IV BID (home med) #Hypothyroidism Plan: - Levothyroxine 150 mcg PO daily (home med) #Gout Plan: - Allopurinol 300 mg PO daily (home med) Checklist Dispo: Pending echo read Lines: PIV Diet: low fiber Bowel Reg: docusate 100 mg PO daily VTE ppx: SCDs GI ppx: n/a Pain mgmt: Meloxicam 7.5 mg QHS (home med), Tylenol PRN Code status: full Plan discussed with Dr. Romain Gonzalez and Dr. Nick Fatima MD PGY1
--- NOTE | 2025-05-24 10:28 | ESDS_ITS ---
<Statement entered by Genie Caicedo DO - 05/25/25 07:31> I, Genie Caicedo DO, attest that I was physically present for the beltran portions of the service and evaluated the patient with the resident and I reviewed and discussed the case with the resident and agree with the resident's findings and plans of care as documented above Planned Discharge Date 05/24/25 DS: Providers Provider Date of admission: 05/20/25 13:26 Primary care physician: Kimberly Santana PA-C Admitting Provider: Kaci Fatima MD Attending Provider on Admission: Genie Caicedo DO Consults: 05/20/25 13:30 Consult to Gastroenterology Stat Comment: Consulting Provider: Berna Jones 05/20/25 17:59 Referral Wound Care Routine Comment: 05/21/25 14:03 Referral Speech Therapy Routine Comment: Attending Provider on DC: Kaci Fatima MD Discharging Provider: Kaci Fatima MD DS: Diagnosis Problem List Completed Was Problem List Reviewed/Reconciled?: Yes Hospital Course Hospital Course Hospital course: Hospital Course Mr. Omer is a 64 y/o male with PMH Down syndrome, nonverba at baselinel, seizures, hypothyroidism who presented to the ED on 05/20 with 2 episodes of hematochezia. Admitted for investigation of GI bleed. Colonoscopy was performed by Dr. Jones and showed bleeding ulcerated mucosa in sigmoid and proximal descending colon consistent with acute severe ischemic colitis. Workup for ischemic colitis was then performed. Carotid doppler showed limited visualization of R ICA, left ICA 0-10% stenosis. CT a/p showed left sided colitis of indeterminate etiology, no colon perforation, or bowel obstruction. No significant arterial stenosis or occlusion noted. CTA also showed findings consistent with chronic decubitus changes in b/l gluteal region. LE Duplex arterial US showed scattered plaque throughout b/l LE arteries.; at least 50% stenosis at left dorsalis pedis artery. No other evidence of stenosis or occlusion. TTE showed LVEF 60-65%. Patient was started on ASA 81 mg PO daily and advanced to low fiber diet which patient tolerated well. Patient was recently treated for community acquired pneumonia with azithromycin outpatient. Patient continued on Ceftriaxone, Duonebs, and chest physiotherapy. Hemoglobin has remained stable during hospitalization and patient is tolerating low fiber diet. Discussed with Pt's caregiver to follow up outpatient with a biomaterials engineer to follow up on imaging findings and follow up with GI and general surgeon to further discuss outpatient management of colonoscopy findings and hernia repair. Patient stable and medically cleared for discharge. Diagnoses #GI bleed, lower #Internal hemorrhoids, grade 2 #Acute severe ischemic colitis #Community acquired pneumonia #Leukocytosis - resolved #Chronic decubitus changes b/l gluteal region #SOURAV - resolved #Transaminitis - resolved #Right inguinal hernia with bowel, not incarcerated #Left inguinal hernia with bladder #Hx seizures #Hypothyroidism #Gout Discharge Instructions - Follow up with PCP within 1 week of discharge, if you do not have a primary care physician you can come see us at the [facility] by calling [phone] - Follow up outpatient for right inguinal hernia if pain increases or unable to be reduced - Continue low fiber diet - You have been prescribed a blood thinner (aspirin 81 mg daily), which can cause bleeding so please be careful with falls, if you have an injury or fall please immediately go to the ED - Continue rest of medications as previously prescribed - Return to the ED or call EMS if symptoms return and/or worsen Kaci Fatima MD PGY1 Time Spent with Patient Time attestation: Total time spent providing and/or coordinating discharge services: Time spent: Greater than 30 minutes Exam Vital Signs Temp Pulse Resp BP Pulse Ox O2 Del Method O2 Flow Rate 97.3 F 58 L 18 126/84 90 L Room Air 2 05/24/25 07:51 05/24/25 10:26 05/24/25 07:51 05/24/25 07:51 05/24/25 07:51 05/24/25 07:51 05/22/25 18:50 Narrative Exam General: No acute distress, well nourished Eye: PERRL, EOMI, normal conjunctiva, no scleral icterus HENT: Normocephalic, atraumatic, normal hearing, moist oral mucosa, adentulous Neck: Supple, non-tender, no JVD, no lymphadenopathy Lungs: Non-labored respirations, symmetric chest rise, no use of accessory muscles. Breath sounds vesicular without crackles, wheezing or rhonchi Heart: Normal S1 and S2, no S3 or S4 appreciated. Normal rate and regular rhythm, no murmurs, rubs gallops, or edema. Peripheral pulses intact bilatera lly, capillary refill brisk distally Abdomen: Soft, non-distended, nontneder, normal bowel sounds. Musculoskeletal: Normal range of motion and strength, no tenderness or swelling Skin: Skin is warm, dry, no rashes or lesions. Neurologic: Nonverbal, unable to follow commands Discharge Plan Plan Patient Disposition: HOME (Self Care) Disposition Comment: halfway Patient condition on transfer: Stable Care Plan Goals: - Follow up with PCP within 1 week of discharge, if you do not have a primary care physician you can come see us at the [facility] by calling [phone] - Follow up outpatient for right inguinal hernia if pain increases or unable to be reduced - Continue low fiber diet - You have been prescribed a blood thinner (aspirin 81 mg daily), which can cause bleeding so please be careful with falls, if you have an injury or fall please immediately go to the ED - Continue rest of medications as previously prescribed - Return to the ED or call EMS if symptoms return and/or worsen Prescriptions/Referrals Prescriptions/Med Rec: New aspirin [Children's Aspirin] 81 mg Tablet,Chewable 81 mg PO QDAY 30 Days Qty: 30 0RF Continued levetiracetam [Keppra] 500 mg tablet 500 mg PO BID Qty: 60 0RF allopurinol 300 mg tablet 300 mg PO QDAY docusate sodium 100 mg capsule 100 mg PO BID levothyroxine 150 mcg capsule 150 mcg PO QDAY loratadine 10 mg tablet 10 mg PO QDAY mirtazapine 7.5 mg tablet 7.5 mg PO HS cholecalciferol (vitamin D3) [Vitamin D3] 25 mcg (1,000 unit) capsule 1,000 unit PO .qod Rx Instructions: take one capsule by mouth three times a week Discontinued meloxicam 15 mg tablet 15 mg PO QDAY Referrals: Kimberly Santana PA-C [Primary Care Provider, Family Practice] Patient/Caregiver Discharge Instructions Education Materials: Ischemic Colitis Print Language: Martiniquais Stand Alone Forms: [employer] Award Info., Patient Portal Info Letter Discharge Order Discharge Orders: Discharge (Routine); Ordered 05/24/25 Ordered By: Kathie Gonzalez Quality Discharge Quality Measures VTE prophylaxis
--- NOTE | 2025-05-24 16:00 | PC.NURSE ---
pt was to be transported home at 1545, so IV's were removed, pickup time was delayed to 1815
--- NOTE | 2025-05-24 21:14 | ESPR_ITS ---
Documentation for date of: 05/24/25 Subjective Subjective Interval history: Late entry for the note Case discussed with the internal medicine attending leila to discharge patient home for outpatient follow-up with a primary care physician Exam Vital Signs Temp Pulse Resp BP Pulse Ox O2 Del Method O2 Flow Rate 97.3 F 84 18 119/76 96 Room Air 2 05/24/25 15:49 05/24/25 15:49 05/24/25 15:49 05/24/25 15:49 05/24/25 15:49 05/24/25 15:49 05/22/25 18:50 Objective Labs 05/24/25 04:48 05/24/25 04:48 Labs: Laboratory Results - last 24 hr 05/24/25 04:48 WBC 6.1 RBC 4.33 L Hgb 13.1 L Hct 38.6 L MCV 89 MCH 30.3 MCHC 33.9 RDW Std Deviation 52.3 H Plt Count 213 Neut % (Auto) 67 Lymph % (Auto) 15 [place] % (Auto) 9 Eos % (Auto) 6 Baso % (Auto) 1 Neut # (Auto) 4.1 Lymph # (Auto) 0.9 L [place] # (Auto) 0.6 Eos # (Auto) 0.4 Baso # (Auto) 0.1 Immature Gran # (Auto) 0.12 H Absolute Nucleated RBC 0.00 Immature Gran % 2 H Nucleated RBC % 0 Sodium 140 Potassium 3.3 L Chloride 102 Carbon Dioxide 27.1 Anion Gap 11 BUN 6 L Creatinine 1.0 Estim Creat Clear Calc 59.4 L eGFR > 60 BUN/Creatinine Ratio 6 L Glucose 81 Calculated Osmolality 276 Calcium 8.9 Corrected Calcium 9.2 Phosphorus 3.5 Magnesium 1.7 Total Bilirubin 0.4 AST 17 ALT 21 Alkaline Phosphatase 94 Total Protein 6.6 Albumin 3.6 Globulin 3.0 Albumin/Globulin Ratio 1.2 Impressions Impression: Ischemic colitis as a source of bleeding follow-up with the primary care physician Assessment & Plan A&P Narrative # Hematochezia etiology uncertain Differential diagnoses include diverticular source of bleeding versus ischemic colitis versus internal hemorrhoids Plan clear liquid diet GoLytely 4 L p.o. and if patient is not clean give the second gallon If patient does not drink 12 [place] NGT and give GoLytely at 400 cc an hour Serial CBC Will follow the patient Check the results of the CT scan of the abdomen pelvis which are still pending Will follow the patient Other medical problems include Down syndrome Nonverbal Grand mal seizure disorder Hypothyroidism Thank you very much for the opportunity to participate in care of this patient Time Spent With Patient Time: Total time spent is greater than 50% in coordination of care (as documented) at patient's floor/unit and/or counseling patient:
== END 2025-05-24 16:15 | disposition home or self-care (01) | DRG 393 ==
LOC: SERX 10:04 → SERHOLD 13:48 → S3NX 05-21 05:48
PROVIDERS: Specialist; Emergency Provider Emergency Medicine; PCP Physician Assistant; Visit Provider Internal Medicine
PROC: 0DJD8ZZ Inspection of Lower Intestinal Tract, Via Natural or Artificial Opening Endoscopic (ICD-10-PCS; CPT 45378; principal; 2025-05-22 18:00)
DX: K55.9 Vascular disorder of intestine, unspecified (principal); J18.9 Pneumonia, unspecified organism; J96.01 Acute respiratory failure with hypoxia; N17.9 Acute kidney failure, unspecified; K51.50 Left sided colitis without complications; K63.3 Ulcer of intestine; E03.9 Hypothyroidism, unspecified; G40.909 Epilepsy, unspecified, not intractable, without status epilepticus; R74.01 Elevation of levels of liver transaminase levels; Q90.9 Down syndrome, unspecified; M10.9 Gout, unspecified; G40.409 Other generalized epilepsy and epileptic syndromes, not intractable, without status epilepticus; K40.90 Unilateral inguinal hernia, without obstruction or gangrene, not specified as recurrent; K64.8 Other hemorrhoids; Z79.82 Long term (current) use of aspirin; Z79.890 Hormone replacement therapy; Z79.899 Other long term (current) drug therapy
CPT/HCPCS: 36415; 51701; 71045; 74174; 74176; 80053; 80061; 80307; 81001; 82150; 82270; 82436; 82570; 83605; 83690; 83735; 84100; 84133; 84145; 84300; 84443; 84484; 85025; 85610; 85730; 86140; 86331; 86635; 86850; 86900; 86901; 87040; 87081; 87086; 87205; 87502; 87635; 92526; 92610; 93005; 93225; 93306; 93880; 93925; 94640; 94667; 96361; 96365; 96375; 96376; 99284; A4649; A9270; J0295; J0696; J1200; J1938; J1953; J2250; J2470; J3010; J3480; J7050; J7120; Q9967